=== PATIENT | male | born 1945 | race Caucasian/White ===

== ENCOUNTER 2022-12-10 10:19 | Inpatient (IN) | payer MEDICARE, OTHER ==
[~2022-12-10] VITALS: Ht 188 cm; Wt 89.8 kg
[2022-12-10] VITALS (8 sets, daily range): BP systolic 95–127; BP diastolic 57–90; PULSE 81–121; RESP 14–34; O2SAT 94–98
[2022-12-10] MEDS ORDERED: cefTRIAXone 1GM/50ML D5W 50 ML IV ONE (10:45)
[2022-12-10] MEDS ORDERED: SODIUM CHLORIDE 0.9% 2,600 ML IV ONE (10:45)
[2022-12-10] MEDS ORDERED: AZITHROMYCIN 500MG/ 250ML 250 ML IV ONE (10:45)
[2022-12-10] MEDS ORDERED: DexAMETHasone SOD PHOS 10MG/1ML VIAL INJ IV ONE (10:45)
[2022-12-10 11:14] LABS: Basophils # (auto) 0 10 ^3/uL (0-0.2); Eosinophils # (auto) 0.1 10 ^3/uL (0-0.8); Lymphocytes # (auto) 0.9 10 ^3/uL (0.4-5.4); Monocytes # (auto) 0.6 10 ^3/uL (0-1.3); Neutrophils # (auto) 4.8 10 ^3/uL (1.6-8.6); White Blood Cell 6.4 10^3/uL (4.4-10.8)
[2022-12-10 11:15] LABS: Basophils % (auto) 0.3 % (0.0-2.0); Mean Corpuscular Hemoglobin 33.6 pg (28.0-32.0); Mean Corpuscular Hgb Conc. 33.3 g/dL (32.0-36.0); Mean Corpuscular Volume 100.8 fL (80.0-100.0); Monocytes % (auto) 9.8 % (0.0-12.0); Neutrophils % (auto) 74.9 % (37.0-80.0); Nucleated Red Blood Cells % 0.3 %; Red Blood Cells 3.87 10^6/uL (4.5-5.90); Red Cell Distribution Width 13.4 % (11.8-14.3)
[2022-12-10 11:21] LABS: Albumin 3.7 g/dL (3.2-4.8); Alkaline Phosphatase 132 U/L (46-116); Anion Gap 6.5 (5-15); Aspartate Aminotransferase 13 U/L (13-40); BUN/Creatinine Ratio 19.2 (10.0-20.0); Bilirubin, Total 0.4 mg/dL (0.2-1.0); Blood Urea Nitrogen 24 mg/dL (9-23); Calcium 8.9 mg/dL (8.5-10.1); Carbon Dioxide 27.5 mmol/L (20-30); Chloride 104 mmol/L (98-107); Glucose 111 mg/dL (74-106); Magnesium 1.4 mg/dL (1.6-2.6); Potassium 4.1 mmol/L (3.5-5.1); Sodium 138 mmol/L (136-145); Total Protein 6.4 g/dL (5.7-8.2)
[2022-12-10] MEDS ORDERED: ACETAMINOPHEN 325 MG TAB PO ONE (11:30)
[2022-12-10] MEDS ORDERED: ENOXAPARIN SOD 100 MG/1 ML SYRINGE SC ONE (12:00)
[2022-12-10 12:08] LABS: Alanine Aminotransferase < 9 U/L (7-40)
[2022-12-10 12:18] LABS: Rapid Influenza A Negative (Negative); Rapid Influenza B Negative (Negative)
[2022-12-10 12:22] LABS: COVID19 ANTIGEN SOFIA FIA POSITIVE (NEGATIVE)
[2022-12-10] MEDS ORDERED: REMDESIVIR PER PHARMACY 0 ML IV SCH (13:00)
[2022-12-10] MEDS ORDERED: REMDESIVIR 200 MG in NS 210ml LOADING DOSE ADULT IV ONE (13:30)
[2022-12-10] MEDS ORDERED: IOHEXOL 350 MG/ML 100ML IJ ONE (13:32)
[2022-12-10] MEDS ORDERED: ONDANSETRON HCL 4 MG/2 ML VIAL IV ONE (14:45)
[2022-12-10] MEDS ORDERED: MORPHINE SULFATE 4 MG/ML SYR/VIAL IV ONE (14:45)
[2022-12-10] MEDS ORDERED: FURO1TAB33 PO (15:22)
[2022-12-10] MEDS ORDERED: ALPR1TAB7 PO (15:22)
[2022-12-10] MEDS ORDERED: DULO1CAP6 PO (15:22)
[2022-12-10] MEDS ORDERED: PANT40TA2 PO (15:22)
[2022-12-10] MEDS ORDERED: CARB-118 PO (15:22)
[2022-12-10] MEDS ORDERED: CARV12.544 PO (15:22)
[2022-12-10] MEDS ORDERED: ALBUTEROL SULF 2.5 MG/0.5ML(0.5%) NEB SOLN NEB PRN (16:15)
[2022-12-10] MEDS ORDERED: ACETAMINOPHEN 325 MG TAB PO PRN (16:15)
[2022-12-10] MEDS ORDERED: IPRATROPIUM BROM 0.5 MG/2.5ML INH SOL NEB PRN (16:15)
[2022-12-10] MEDS ORDERED: NITROGLYCERIN 0.4 MG SL TAB SL PRN (16:15)
[2022-12-10] MEDS ORDERED: HYDROcodone-ACET 5/325MG TAB PO PRN (16:15)
[2022-12-10] MEDS ORDERED: MORPHINE SULFATE INJ 2 MG/ml SYRG IV PRN (16:15)
[2022-12-10] MEDS: guaiFENesin-DM 100/10mg/5ml SYR PO PRN ×2 (16:54→21:51)
[2022-12-10] MEDS ORDERED: HEPARIN SODIUM (PORCINE) 5000 UNITS/ML 1ML VIAL IV ONE (17:30)
[2022-12-10] MEDS ORDERED: HEPARIN DRIP/D5W 100UNITS/ML 250 ML IV SCH ×2 (17:30→23:00)
[2022-12-10 19:06] LABS: INR 1.04 (0.9-1.15); Partial Thromboplastin Time 50.5 SEC (24.5-34.5); Prothrombin Time 10.9 sec (9.3-11.8)
[2022-12-10 21:30] LABS: Magnesium 1.4 mg/dL (1.6-2.6)
[2022-12-10 21:40] LABS: CRP High Sensitivity 13.6 mg/dL (<1.0)
[2022-12-10 21:49] LABS: Thyroid Stimulating Hormone 0.27 uIU/mL (0.55-4.78)
[2022-12-10] MEDS: DOXYCYCLINE 100 MG TAB/CAP PO SCH (21:49)
[2022-12-10] MEDS: SODIUM CHLOR 0.9% PF (SALINE LOCK) 10ML VIAL/SYR IV SCH (21:49)
[2022-12-10 21:52] LABS: Urine Bacteria NONE SEEN /hpf (None Seen); Urine Blood Negative /uL (Negative); Urine Clarity Clear (Clear); Urine Color Yellow (Yellow); Urine Protein, UAD 1+ (Negative); Urine Urobilinogen Normal (Negative); Urine WBC <1 /hpf (0 - 3); Urine pH 6.5 (5.0-8.0)
[2022-12-10 21:57] LABS: Urine Specific Gravity > 1.050 (1.001-1.035)
[2022-12-10] MEDS: ALPRAZolam 0.5 MG TAB PO SCH (22:12)
[2022-12-10] MEDS: CARVEDILOL 12.5 MG TAB PO SCH (22:12)
[2022-12-10] MEDS: CARBIDOPA W LEVODOPA 25/100mg TABLET PO SCH (22:12)
[2022-12-11] VITALS (22 sets, daily range): BP systolic 95–134; BP diastolic 61–87; PULSE 65–95; RESP 11–25; TEMP 97.7–98.8; O2SAT 89–100
[2022-12-11 04:26] LABS: INR 1.07 (0.9-1.15); Prothrombin Time 11.2 sec (9.3-11.8)
[2022-12-11 04:33] LABS: Partial Thromboplastin Time > 139.0 SEC (24.5-34.5)
[2022-12-11] MEDS ORDERED: HEPARIN DRIP/D5W 100UNITS/ML 250 ML IV SCH ×3 (05:30→23:30)
[2022-12-11 05:33] LABS: Basophils # (auto) 0 10 ^3/uL (0-0.2); Eosinophils # (auto) 0 10 ^3/uL (0-0.8); Hematocrit 31.7 % (41.0-53.0); Hemoglobin 10.8 g/dL (13.5-17.5); Lymphocytes # (auto) 0.5 10 ^3/uL (0.4-5.4); Monocytes # (auto) 0.2 10 ^3/uL (0-1.3); Neutrophils # (auto) 4.7 10 ^3/uL (1.6-8.6); White Blood Cell 5.4 10^3/uL (4.4-10.8)
[2022-12-11 05:36] LABS: Lymphocytes % (auto) 9.4 % (10.0-50.0); Mean Corpuscular Hemoglobin 34.4 pg (28.0-32.0); Mean Corpuscular Volume 101.1 fL (80.0-100.0); Monocytes % (auto) 3.8 % (0.0-12.0); Neutrophils % (auto) 86.8 % (37.0-80.0); Red Blood Cells 3.14 10^6/uL (4.5-5.90); Red Cell Distribution Width 13.1 % (11.8-14.3)
[2022-12-11 05:39] LABS: Alkaline Phosphatase 100 U/L (46-116); Aspartate Aminotransferase 9 U/L (13-40); Calcium 7.9 mg/dL (8.5-10.1); Carbon Dioxide 26.5 mmol/L (20-30); Chloride 107 mmol/L (98-107)
[2022-12-11 05:40] LABS: Anion Gap 5.5 (5-15); Bilirubin, Total 0.3 mg/dL (0.2-1.0); Blood Urea Nitrogen 21 mg/dL (9-23); Glucose 129 mg/dL (74-106); Sodium 139 mmol/L (136-145); Total Protein 5.2 g/dL (5.7-8.2)
[2022-12-11 05:50] LABS: Alanine Aminotransferase < 9 U/L (7-40)
[2022-12-11] MEDS: CARBIDOPA W LEVODOPA 25/100mg TABLET PO SCH ×3 (06:00→22:42)
[2022-12-11] MEDS: SODIUM CHLOR 0.9% PF (SALINE LOCK) 10ML VIAL/SYR IV SCH ×3 (06:05→22:41)
[2022-12-11] MEDS: DULoxetine HCL 30 MG CAP PO SCH (07:35)
[2022-12-11] MEDS: ALPRAZolam 0.5 MG TAB PO SCH ×2 (07:35→22:42)
[2022-12-11] MEDS: DOXYCYCLINE 100 MG TAB/CAP PO SCH ×2 (07:35→22:41)
[2022-12-11] MEDS: ZINC SULFATE 220mg CAP or TAB PO SCH (07:35)
[2022-12-11] MEDS: CHOLECALCIFEROL (VITD3) 2,000 UNIT CAP/TAB PO SCH (07:36)
[2022-12-11] MEDS: FUROSEMIDE 20 MG TAB PO SCH (07:36)
[2022-12-11] MEDS: ASCORBIC ACID 1,000 MG TAB PO SCH (07:36)
[2022-12-11] MEDS: AZITHROMYCIN 500MG/ 250ML 250 ML IV SCH (07:37)
[2022-12-11] MEDS: DexAMETHasone SOD PHOS 10MG/1ML VIAL INJ IV SCH (07:37)
[2022-12-11] MEDS: CARVEDILOL 12.5 MG TAB PO SCH ×2 (07:37→22:44)
[2022-12-11] MEDS: PANTOPRAZOLE 40 MG TAB PO SCH (07:37)
[2022-12-11] MEDS: guaiFENesin-DM 100/10mg/5ml SYR PO PRN (07:40)
[2022-12-11 08:25] LABS: Cholesterol 138 mg/dL (< 200)
[2022-12-11 08:26] LABS: Triglycerides 41 mg/dL (< 150)
[2022-12-11 08:27] LABS: LDL Cholesterol 52 mg/dL (< 100)
[2022-12-11 08:28] LABS: HDL Cholesterol 76 mg/dL (40-59)
[2022-12-11 12:20] LABS: INR 1.08 (0.9-1.15); Prothrombin Time 11.3 sec (9.3-11.8)
[2022-12-11 13:20] LABS: Partial Thromboplastin Time > 139.0 SEC (24.5-34.5)
[2022-12-11] MEDS ORDERED: MORPHINE SULFATE INJ 2 MG/ml SYRG IV PRN (14:00)
[2022-12-11] MEDS: REMDESIVIR 100mg 100 MG in SODIUM CHL 0.9% 230 ML IV SCH (15:00)
[2022-12-11] MEDS: HYDROcodone-ACET 5/325MG TAB PO PRN (17:45)
[2022-12-11 21:56] LABS: INR 1.05 (0.9-1.15)
[2022-12-11 22:26] LABS: Partial Thromboplastin Time 109.6 SEC (24.5-34.5)
[2022-12-11] MEDS: APIXABAN 5 MG TAB PO SCH (22:44)
[2022-12-12] VITALS (14 sets, daily range): BP systolic 102–125; BP diastolic 55–81; PULSE 65–97; RESP 15–24; TEMP 97.6–98.7; O2SAT 93–99
[2022-12-12] MEDS: HYDROcodone-ACET 5/325MG TAB PO PRN ×3 (01:46→22:02)
[2022-12-12] MEDS: guaiFENesin-DM 100/10mg/5ml SYR PO PRN (03:17)
[2022-12-12] MEDS: SODIUM CHLOR 0.9% PF (SALINE LOCK) 10ML VIAL/SYR IV SCH ×3 (06:00→22:10)
[2022-12-12] MEDS: CARBIDOPA W LEVODOPA 25/100mg TABLET PO SCH ×3 (06:21→22:02)
[2022-12-12 08:23] LABS: INR 1.02 (0.9-1.15); Partial Thromboplastin Time 39.1 SEC (24.5-34.5); Prothrombin Time 10.7 sec (9.3-11.8)
[2022-12-12 08:30] LABS: Alkaline Phosphatase 94 U/L (46-116); Anion Gap 5.2 (5-15); Aspartate Aminotransferase 8 U/L (13-40); BUN/Creatinine Ratio 21.8 (10.0-20.0); Bilirubin, Total 0.3 mg/dL (0.2-1.0); Blood Urea Nitrogen 27 mg/dL (9-23); Calcium 7.9 mg/dL (8.5-10.1); Carbon Dioxide 27.8 mmol/L (20-30); Chloride 106 mmol/L (98-107); Glucose 112 mg/dL (74-106); Potassium 4.3 mmol/L (3.5-5.1); Sodium 139 mmol/L (136-145); Total Protein 5.3 g/dL (5.7-8.2)
[2022-12-12 08:31] LABS: Alanine Aminotransferase < 9 U/L (7-40)
[2022-12-12] MEDS: AZITHROMYCIN 500MG/ 250ML 250 ML IV SCH (09:01)
[2022-12-12] MEDS: CARVEDILOL 12.5 MG TAB PO SCH ×2 (09:15→22:01)
[2022-12-12] MEDS: APIXABAN 5 MG TAB PO SCH ×2 (09:15→22:01)
[2022-12-12] MEDS: ZINC SULFATE 220mg CAP or TAB PO SCH (09:21)
[2022-12-12] MEDS: PANTOPRAZOLE 40 MG TAB PO SCH (09:21)
[2022-12-12] MEDS: CHOLECALCIFEROL (VITD3) 2,000 UNIT CAP/TAB PO SCH (09:21)
[2022-12-12] MEDS: ASCORBIC ACID 1,000 MG TAB PO SCH (09:21)
[2022-12-12] MEDS: DexAMETHasone SOD PHOS 10MG/1ML VIAL INJ IV SCH (09:23)
[2022-12-12] MEDS: FUROSEMIDE 20 MG TAB PO SCH (09:23)
[2022-12-12] MEDS: DOXYCYCLINE 100 MG TAB/CAP PO SCH ×2 (09:23→22:02)
[2022-12-12] MEDS: DULoxetine HCL 30 MG CAP PO SCH (10:00)
[2022-12-12] MEDS: ALPRAZolam 0.5 MG TAB PO SCH ×2 (10:00→22:02)
[2022-12-12 14:06] LABS: Base Excess -0.6 mmol/L (-2.0-2.0)
[2022-12-12] MEDS ORDERED: CALCIUM CARB 500 MG CHEW TAB PO ONE (14:30)
[2022-12-12] MEDS: REMDESIVIR 100mg 100 MG in SODIUM CHL 0.9% 230 ML IV SCH (16:13)
[2022-12-12] MEDS: CALCIUM CARB 500 MG CHEW TAB PO SCH (17:33)
[2022-12-13] VITALS (11 sets, daily range): BP systolic 114–142; BP diastolic 66–85; PULSE 64–84; RESP 17–24; TEMP 97.5–98; O2SAT 94–98
[2022-12-13] MEDS: CARBIDOPA W LEVODOPA 25/100mg TABLET PO SCH ×3 (05:41→22:52)
[2022-12-13] MEDS: SODIUM CHLOR 0.9% PF (SALINE LOCK) 10ML VIAL/SYR IV SCH ×3 (05:43→22:59)
[2022-12-13 06:37] LABS: Alkaline Phosphatase 98 U/L (46-116); Anion Gap 5.2 (5-15); Aspartate Aminotransferase < 8 U/L (13-40); BUN/Creatinine Ratio 22.7 (10.0-20.0); Bilirubin, Total 0.3 mg/dL (0.2-1.0); Blood Urea Nitrogen 27 mg/dL (9-23); Carbon Dioxide 28.8 mmol/L (20-30); Chloride 106 mmol/L (98-107); Glucose 103 mg/dL (74-106); Potassium 4.2 mmol/L (3.5-5.1); Sodium 140 mmol/L (136-145); Total Protein 5.1 g/dL (5.7-8.2)
[2022-12-13 07:08] LABS: Alanine Aminotransferase < 9 U/L (7-40)
[2022-12-13] MEDS ORDERED: APIXABAN 5 MG TAB PO SCH (10:00)
[2022-12-13] MEDS: AZITHROMYCIN 500MG/ 250ML 250 ML IV SCH (11:38)
[2022-12-13] MEDS: DexAMETHasone SOD PHOS 10MG/1ML VIAL INJ IV SCH (11:39)
[2022-12-13] MEDS: CALCIUM CARB 500 MG CHEW TAB PO SCH ×3 (11:39→18:00)
[2022-12-13] MEDS: CHOLECALCIFEROL (VITD3) 2,000 UNIT CAP/TAB PO SCH (11:40)
[2022-12-13] MEDS: CARVEDILOL 12.5 MG TAB PO SCH ×2 (11:41→22:53)
[2022-12-13] MEDS: FUROSEMIDE 20 MG TAB PO SCH (11:41)
[2022-12-13] MEDS: APIXABAN 5 MG TAB PO SCH ×2 (11:41→22:53)
[2022-12-13] MEDS: ALPRAZolam 0.5 MG TAB PO SCH ×2 (11:42→22:52)
[2022-12-13] MEDS: ZINC SULFATE 220mg CAP or TAB PO SCH (11:42)
[2022-12-13] MEDS: DULoxetine HCL 30 MG CAP PO SCH (11:42)
[2022-12-13] MEDS: PANTOPRAZOLE 40 MG TAB PO SCH (11:42)
[2022-12-13] MEDS: ASCORBIC ACID 1,000 MG TAB PO SCH (11:42)
[2022-12-13] MEDS: DOXYCYCLINE 100 MG TAB/CAP PO SCH ×2 (11:42→22:52)
[2022-12-13] MEDS: REMDESIVIR 100mg 100 MG in SODIUM CHL 0.9% 230 ML IV SCH (15:17)
[2022-12-13] MEDS: HYDROcodone-ACET 5/325MG TAB PO PRN (22:57)
[2022-12-14] VITALS (9 sets, daily range): BP systolic 117–141; BP diastolic 74–83; PULSE 62–76; RESP 14–22; TEMP 97.3–98.7; O2SAT 95–100
[2022-12-14 05:35] LABS: Basophils # (auto) 0 10 ^3/uL (0-0.2); Basophils % (auto) 0.1 % (0.0-2.0); Eosinophils # (auto) 0 10 ^3/uL (0-0.8); Hematocrit 32.5 % (41.0-53.0); Lymphocytes # (auto) 0.5 10 ^3/uL (0.4-5.4); Lymphocytes % (auto) 9.1 % (10.0-50.0); Mean Corpuscular Hgb Conc. 33.9 g/dL (32.0-36.0); Mean Corpuscular Volume 100.1 fL (80.0-100.0); Monocytes # (auto) 0.3 10 ^3/uL (0-1.3); Monocytes % (auto) 6.1 % (0.0-12.0); Neutrophils # (auto) 4.3 10 ^3/uL (1.6-8.6); Neutrophils % (auto) 84.7 % (37.0-80.0); Nucleated Red Blood Cells % 0.2 %; Red Blood Cells 3.25 10^6/uL (4.5-5.90); Red Cell Distribution Width 13.2 % (11.8-14.3); White Blood Cell 5.1 10^3/uL (4.4-10.8)
[2022-12-14] MEDS: CARBIDOPA W LEVODOPA 25/100mg TABLET PO SCH ×2 (05:39→14:00)
[2022-12-14] MEDS: SODIUM CHLOR 0.9% PF (SALINE LOCK) 10ML VIAL/SYR IV SCH ×2 (05:39→14:00)
[2022-12-14 05:58] LABS: Alkaline Phosphatase 92 U/L (46-116); BUN/Creatinine Ratio 23.3 (10.0-20.0); Blood Urea Nitrogen 24 mg/dL (9-23); Calcium 8.1 mg/dL (8.7-10.4); Chloride 107 mmol/L (98-107); Glucose 123 mg/dL (74-106); Potassium 4.1 mmol/L (3.5-5.1); Sodium 141 mmol/L (136-145)
[2022-12-14 05:59] LABS: Aspartate Aminotransferase < 8 U/L (13-40); Bilirubin, Total 0.3 mg/dL (0.2-1.0)
[2022-12-14 06:20] LABS: Alanine Aminotransferase < 9 U/L (7-40)
[2022-12-14] MEDS: ZINC SULFATE 220mg CAP or TAB PO SCH (10:45)
[2022-12-14] MEDS: DULoxetine HCL 30 MG CAP PO SCH (10:45)
[2022-12-14] MEDS: APIXABAN 5 MG TAB PO SCH (10:45)
[2022-12-14] MEDS: ALPRAZolam 0.5 MG TAB PO SCH (10:45)
[2022-12-14] MEDS: DOXYCYCLINE 100 MG TAB/CAP PO SCH (10:46)
[2022-12-14] MEDS: FUROSEMIDE 20 MG TAB PO SCH (10:46)
[2022-12-14] MEDS: CALCIUM CARB 500 MG CHEW TAB PO SCH ×3 (10:46→18:14)
[2022-12-14] MEDS: CARVEDILOL 12.5 MG TAB PO SCH (10:47)
[2022-12-14] MEDS: CHOLECALCIFEROL (VITD3) 2,000 UNIT CAP/TAB PO SCH (10:47)
[2022-12-14] MEDS: ASCORBIC ACID 1,000 MG TAB PO SCH (10:48)
[2022-12-14] MEDS: AZITHROMYCIN 500MG/ 250ML 250 ML IV SCH (10:48)
[2022-12-14] MEDS: PANTOPRAZOLE 40 MG TAB PO SCH (10:48)
[2022-12-14] MEDS: DexAMETHasone SOD PHOS 10MG/1ML VIAL INJ IV SCH (10:48)
[2022-12-14] MEDS: guaiFENesin-DM 100/10mg/5ml SYR PO PRN (11:31)
[2022-12-14] MEDS ORDERED: DOX100T PO (11:40)
[2022-12-14] MEDS ORDERED: APIX5TAB PO (11:40)
[2022-12-14] MEDS: REMDESIVIR 100mg 100 MG in SODIUM CHL 0.9% 230 ML IV SCH (17:05)
[2022-12-19] MEDS ORDERED: APIXABAN 5 MG TAB PO SCH (10:00)
[2022-12-20] MEDS ORDERED: APIXABAN 2.5 MG TAB PO SCH (10:00)
== END 2022-12-14 19:35 | disposition left against medical advice (07) | DRG 177 ==
LOC: ER 10:19 → EDBD 10:19 → TELE 16:23 → DOU IN ICU 21:16 → TELE-EAST 12-12 02:56
PROVIDERS: ADMIT Nurse Practitioner Family; ATTEND Nurse Practitioner Acute Care
PROC: XW033E5 Introduction of Remdesivir Anti-infective into Peripheral Vein, Percutaneous Approach, New Technology Group 5 (ICD-10-PCS; principal; 2022-12-10)
DX: U07.1 COVID-19 (principal); I26.92 Saddle embolus of pulmonary artery without acute cor pulmonale; I50.23 Acute on chronic systolic (congestive) heart failure; J96.01 Acute respiratory failure with hypoxia; I82.4Z1 Acute embolism and thrombosis of unspecified deep veins of right distal lower extremity; D69.6 Thrombocytopenia, unspecified; E78.5 Hyperlipidemia, unspecified; J44.9 Chronic obstructive pulmonary disease, unspecified; G20 Parkinson's disease; Z87.891 Personal history of nicotine dependence; Z79.01 Long term (current) use of anticoagulants; Z86.711 Personal history of pulmonary embolism; Z90.49 Acquired absence of other specified parts of digestive tract
CPT/HCPCS: 36415; 36600; 71045; 71275; 80053; 80061; 81001; 82306; 82728; 82805; 83036; 83605; 83615; 83735; 83880; 84443; 84484; 85025; 85379; 85610; 85730; 86141; 87040; 87081; 87426; 87804; 93005; 93306; 93970; 94640; 96365; 96375; 99291; G0378; J0696; J1100; J2405

== ENCOUNTER 2023-04-27 13:25 | Emergency (ER) | payer MEDICARE, OTHER ==
[~2023-04-27] VITALS: Ht 177.8 cm; Wt 88.6 kg
[~2023-04-27 13:25] MED LIST: ALPR1TAB7 PO; APIX5TAB PO; CARB-118 PO; CARV12.544 PO; DOX100T PO; DULO1CAP6 PO; FURO1TAB33 PO; PANT40TA2 PO
[2023-04-27 15:40] VITALS: BP 114/63; PULSE 97; RESP 14; TEMP 97.6; O2SAT 97
[2023-04-27] MEDS: FUROSEMIDE 100 MG/10ML VIAL IV ONE (15:42)
[2023-04-27 15:49] LABS: Basophils # (auto) 0 10 ^3/uL (0-0.2); Basophils % (auto) 0.4 % (0.0-2.0); Eosinophils # (auto) 0 10 ^3/uL (0-0.8); Eosinophils % (auto) 0.9 % (0.0-7.0); Hematocrit 40.2 % (41.0-53.0); Hemoglobin 12.9 g/dL (13.5-17.5); Lymphocytes # (auto) 0.7 10 ^3/uL (0.4-5.4); Lymphocytes % (auto) 22.8 % (10.0-50.0); Mean Corpuscular Hemoglobin 34.7 pg (28.0-32.0); Mean Corpuscular Hgb Conc. 32.1 g/dL (32.0-36.0); Mean Corpuscular Volume 108.2 fL (80.0-100.0); Monocytes # (auto) 0.3 10 ^3/uL (0-1.3); Monocytes % (auto) 9.2 % (0.0-12.0); Neutrophils # (auto) 2.2 10 ^3/uL (1.6-8.6); Neutrophils % (auto) 66.7 % (37.0-80.0); Nucleated Red Blood Cells % 0.1 %; Red Blood Cells 3.72 10^6/uL (4.5-5.90); Red Cell Distribution Width 16.8 % (11.8-14.3); White Blood Cell 3.3 10^3/uL (4.4-10.8)
[2023-04-27 16:04] LABS: Alanine Aminotransferase 14 U/L (7-40); Albumin 3.4 g/dL (3.2-4.8); Alkaline Phosphatase 149 U/L (46-116); Anion Gap 6 (5-15); Aspartate Aminotransferase 65 U/L (13-40); Blood Urea Nitrogen 17 mg/dL (9-23); Calcium 8.5 mg/dL (8.5-10.1); Carbon Dioxide 32 mmol/L (20-30); Chloride 104 mmol/L (98-107); Glucose 107 mg/dL (74-106); Potassium 3.5 mmol/L (3.5-5.1); Sodium 142 mmol/L (136-145)
[2023-04-27 16:05] LABS: Total Protein 5.5 g/dL (5.7-8.2)
[2023-04-27 16:13] LABS: CRP High Sensitivity 1.11 mg/dL (<1.0)
[2023-04-27 16:32] LABS: Magnesium 1.5 mg/dL (1.6-2.6)
[2023-04-27 16:33] LABS: Erythrocyte Sedimentation Rate 11 mm/hr (0-20)
[2023-04-27 17:03] LABS: Urine Epithelial Cast None Seen /hpf (<5)
[2023-04-27] MEDS ORDERED: MAGNESIUM SULFATE 1GM/100ML 100 ML IV ONE (17:15)
[2023-04-27] MEDS ORDERED: CLINDAMYCIN 900MG IV 50 ML IV ONE (17:15)
[2023-04-27 17:32] LABS: Urine Bacteria NONE SEEN /hpf (None Seen); Urine Blood Negative /uL (Negative); Urine Clarity Clear (Clear); Urine Color Colorless (Yellow); Urine Hyaline Cast FEW /lpf (0 - 2); Urine Protein, UAD Negative (Negative); Urine Specific Gravity 1.009 (1.001-1.035); Urine Urobilinogen Normal (Negative); Urine WBC 2 /hpf (0 - 3); Urine pH 5.5 (5.0-8.0)
[2023-04-27] MEDS ORDERED: ACETAMINOPHEN 325 MG TAB PO PRN (20:30)
[2023-04-27] MEDS ORDERED: ONDANSETRON HCL 4 MG/2 ML VIAL IV PRN (20:30)
[2023-04-27] MEDS ORDERED: CARVEDILOL 3.125 MG TAB PO SCH (22:00)
[2023-04-27] MEDS ORDERED: CARBIDOPA W LEVODOPA 25/100mg TABLET PO SCH (22:00)
[2023-04-27] MEDS ORDERED: APIXABAN 2.5 MG TAB PO SCH (22:00)
[2023-04-28] MEDS ORDERED: CLINDAMYCIN 600MG IV 50 ML IV SCH (06:00)
[2023-04-28] MEDS ORDERED: DULoxetine HCL 30 MG CAP PO SCH (10:00)
[2023-04-28] MEDS ORDERED: FUROSEMIDE 40 MG TAB PO SCH (10:00)
[2023-04-28] MEDS ORDERED: TAMSULOSIN HYDROCHLORIDE 0.4 MG CAP PO SCH (18:00)
== END 2023-04-27 20:32 | disposition left against medical advice (07) ==
LOC: ER 13:25 → OVERFLOW 20:32 → EAST 20:32 → UNDOADMIN 20:32 → OVERFLOW 23:41 → EAST 23:41 → UNDODISIN 23:59 → OVERFLOW 04-28 00:15 → EAST 04-28 00:15
DX: L03.115 Cellulitis of right lower limb (principal); L03.116 Cellulitis of left lower limb; R91.1 Solitary pulmonary nodule; J44.9 Chronic obstructive pulmonary disease, unspecified; I50.9 Heart failure, unspecified; E83.42 Hypomagnesemia; R79.1 Abnormal coagulation profile; Z87.891 Personal history of nicotine dependence; Z86.711 Personal history of pulmonary embolism; Z79.2 Long term (current) use of antibiotics; Z79.899 Other long term (current) drug therapy; Z88.2 Allergy status to sulfonamides; Z91.018 Allergy to other foods
CPT/HCPCS: 36415; 71045; 71275; 80053; 81001; 83605; 83735; 83880; 84484; 85025; 85379; 85652; 86141; 87040; 93970; 96374; 99291; J1940; Q9967; G0378

== ENCOUNTER 2023-11-10 13:41 | Inpatient (IN) | payer MEDICARE ==
[~2023-11-10] VITALS: Ht 182.9 cm; Wt 82.1 kg
[~2023-11-10 13:41] MED LIST changes: +CARV6.2551 PO; +DULO30CA PO; +FURO40TA4 PO
[2023-11-10 14:34] VITALS: PULSE 120; RESP 27; O2SAT 97
[2023-11-10 14:34] LABS: Basophils # (auto) 0.1 10 ^3/uL (0-0.2); Basophils % (auto) 0.7 % (0.0-2.0); Eosinophils # (auto) 0 10 ^3/uL (0-0.8); Eosinophils % (auto) 0.5 % (0.0-7.0); Hematocrit 30.6 % (41.0-53.0); Lymphocytes # (auto) 0.6 10 ^3/uL (0.4-5.4); Lymphocytes % (auto) 7.2 % (10.0-50.0); Mean Corpuscular Hemoglobin 30.8 pg (28.0-32.0); Mean Corpuscular Hgb Conc. 32.6 g/dL (32.0-36.0); Mean Corpuscular Volume 94.4 fL (80.0-100.0); Monocytes # (auto) 0.5 10 ^3/uL (0-1.3); Monocytes % (auto) 6.8 % (0.0-12.0); Neutrophils # (auto) 6.7 10 ^3/uL (1.6-8.6); Neutrophils % (auto) 84.8 % (37.0-80.0); Nucleated Red Blood Cells % 0.1 %; Red Blood Cells 3.24 10^6/uL (4.5-5.90); Red Cell Distribution Width 15.6 % (11.8-14.3); White Blood Cell 7.9 10^3/uL (4.4-10.8)
[2023-11-10] MEDS: SODIUM CHLORIDE 0.9% 1,000 ML IV ONE ×4 (14:40→21:53)
[2023-11-10 14:48] LABS: INR 1.07 (0.9-1.15); Partial Thromboplastin Time 28.9 SEC (24.5-34.5); Prothrombin Time 11.3 sec (9.3-11.8)
[2023-11-10] MEDS: HYDROcodone-ACET 10/325MG TAB PO ONE ×2 (14:49→18:01)
[2023-11-10 14:59] LABS: Alkaline Phosphatase 136 U/L (46-116); Anion Gap 9 (5-15); Aspartate Aminotransferase 13 U/L (13-40); BUN/Creatinine Ratio 14.8 (10.0-20.0); Blood Urea Nitrogen 18 mg/dL (9-23); Calcium 8.8 mg/dL (8.7-10.4); Carbon Dioxide 30 mmol/L (20-30); Chloride 99 mmol/L (98-107); Glucose 109 mg/dL (74-106); Magnesium 1.4 mg/dL (1.6-2.6); Potassium 3.1 mmol/L (3.5-5.1); Sodium 138 mmol/L (136-145)
[2023-11-10 15:00] LABS: Bilirubin, Total 0.8 mg/dL (0.2-1.0); Total Protein 5.7 g/dL (5.7-8.2)
[2023-11-10 15:09] LABS: Alanine Aminotransferase < 9 U/L (7-40)
[2023-11-10] MEDS ORDERED: SODIUM CHLORIDE 0.9% 1,000 ML IV ONE (15:15)
[2023-11-10] MEDS: cefTRIAXone 1GM/50ML D5W 50 ML IV ONE (15:24)
[2023-11-10] MEDS: CLINDAMYCIN 600MG IV 50 ML IV ONE (15:44)
[2023-11-10 16:25] LABS: Lactic Acid w/Reflex 4.5 mmol/L (0.4-2.0)
[2023-11-10 18:20] LABS: Urine Bacteria FEW /hpf (None Seen); Urine Blood 2+ /uL (Negative); Urine Hyaline Cast MANY /lpf (0 - 2); Urine Mucus FEW (None Seen); Urine Protein, UAD 2+ (Negative); Urine Specific Gravity 1.017 (1.001-1.035); Urine Urobilinogen 2 mg/dL (Negative); Urine WBC 1677 /hpf (0 - 3); Urine WBC Clumps PRESENT /hpf (None Seen)
[2023-11-10 18:26] LABS: Urine Clarity TURBID (Clear); Urine Color Amber (Yellow)
[2023-11-10 19:30] VITALS: PULSE 100; RESP 14; O2SAT 100
[2023-11-10] MEDS ORDERED: ACETAMINOPHEN 325 MG TAB PO PRN (23:00)
[2023-11-10] MEDS ORDERED: ALBUTEROL SULF 2.5 MG/0.5ML(0.5%) NEB SOLN NEB PRN (23:00)
[2023-11-10] MEDS: SODIUM CHLORIDE 0.9% 1,000 ML IV SCH (23:29)
[2023-11-10] MEDS: POTASSIUM CHL 20 Meq TABLET PO ONE (23:29)
[2023-11-10] MEDS: MAGNESIUM SULFATE 1GM/100ML 100 ML IV ONE (23:29)
[2023-11-10] MEDS: ALBUMIN 25% 100 ML IV ONE (23:30)
[2023-11-10] MEDS ORDERED: NITROGLYCERIN 0.4 MG SL TAB SL PRN (23:45)
[2023-11-10] MEDS ORDERED: MORPHINE SULFATE INJ 2 MG/ml SYRG IV PRN (23:45)
[2023-11-11] VITALS (11 sets, daily range): BP systolic 93–127; BP diastolic 51–71; PULSE 68–104; RESP 17–20; TEMP 97.7–98.6; O2SAT 92–100
[2023-11-11 05:33] LABS: Basophils # (auto) 0 10 ^3/uL (0-0.2); Eosinophils # (auto) 0.1 10 ^3/uL (0-0.8); Eosinophils % (auto) 2.8 % (0.0-7.0); Hemoglobin 8.5 g/dL (13.5-17.5); Lymphocytes # (auto) 1.6 10 ^3/uL (0.4-5.4); Lymphocytes % (auto) 31.6 % (10.0-50.0); Mean Corpuscular Hgb Conc. 32.6 g/dL (32.0-36.0); Monocytes # (auto) 0.5 10 ^3/uL (0-1.3); Monocytes % (auto) 10.2 % (0.0-12.0); Neutrophils # (auto) 2.8 10 ^3/uL (1.6-8.6); Neutrophils % (auto) 54.4 % (37.0-80.0); Nucleated Red Blood Cells % 0.2 %; Red Blood Cells 2.74 10^6/uL (4.5-5.90); Red Cell Distribution Width 15.3 % (11.8-14.3); White Blood Cell 5.1 10^3/uL (4.4-10.8)
[2023-11-11 05:58] LABS: Alkaline Phosphatase 106 U/L (46-116); Anion Gap 5 (5-15); Aspartate Aminotransferase 9 U/L (13-40); Carbon Dioxide 25 mmol/L (20-30); Chloride 108 mmol/L (98-107); Glucose 74 mg/dL (74-106); Potassium 3.4 mmol/L (3.5-5.1); Sodium 138 mmol/L (136-145)
[2023-11-11 05:59] LABS: BUN/Creatinine Ratio 12.5 (10.0-20.0); Blood Urea Nitrogen 12 mg/dL (9-23)
[2023-11-11 06:00] LABS: Albumin 2.6 g/dL (3.2-4.8); Bilirubin, Total 0.4 mg/dL (0.2-1.0)
[2023-11-11 06:15] LABS: Alanine Aminotransferase < 9 U/L (7-40)
[2023-11-11 07:10] LABS: Total Protein 5.1 g/dL (5.7-8.2)
[2023-11-11] MEDS: cefTRIAXone 1GM/50ML D5W 50 ML IV SCH (09:54)
[2023-11-11] MEDS: FAMOTIDINE (10MG/ML) 2ML VL IV SCH (09:57)
[2023-11-11] MEDS: APIXABAN 5 MG TAB PO SCH (09:57)
[2023-11-11 12:43] LABS: Hematocrit 26.3 % (41.0-53.0); Hemoglobin 8.5 g/dL (13.5-17.5)
[2023-11-11] MEDS: HYDROcodone-ACET 5/325MG TAB PO PRN (13:05)
[2023-11-11] MEDS: POTASSIUM EFFERVESENT TAB 25 MEQ PO ONE (13:19)
[2023-11-11 13:51] LABS: Hematocrit 26.9 % (41.0-53.0); Hemoglobin 8.7 g/dL (13.5-17.5)
[2023-11-11] MEDS: MAGNESIUM SULFATE 1GM/100ML 100 ML IV ONE (17:31)
[2023-11-11] MEDS: APIXABAN 2.5 MG TAB PO SCH (21:32)
[2023-11-12] VITALS (8 sets, daily range): BP systolic 120–145; BP diastolic 69–81; PULSE 52–102; RESP 15–17; TEMP 97.7–98.7; O2SAT 91–98
[2023-11-12 06:20] LABS: Basophils # (auto) 0.1 10 ^3/uL (0-0.2); Basophils % (auto) 1.1 % (0.0-2.0); Eosinophils # (auto) 0.1 10 ^3/uL (0-0.8); Hemoglobin 8.3 g/dL (13.5-17.5); Lymphocytes # (auto) 1.2 10 ^3/uL (0.4-5.4); Mean Corpuscular Hemoglobin 31.2 pg (28.0-32.0); Monocytes # (auto) 0.4 10 ^3/uL (0-1.3); Neutrophils # (auto) 2.9 10 ^3/uL (1.6-8.6); Red Blood Cells 2.66 10^6/uL (4.5-5.90); White Blood Cell 4.7 10^3/uL (4.4-10.8)
[2023-11-12 06:24] LABS: Eosinophils % (auto) 2.5 % (0.0-7.0); Lymphocytes % (auto) 25.8 % (10.0-50.0); Mean Corpuscular Hgb Conc. 33.1 g/dL (32.0-36.0); Mean Corpuscular Volume 94.2 fL (80.0-100.0); Monocytes % (auto) 8.1 % (0.0-12.0); Neutrophils % (auto) 62.5 % (37.0-80.0)
[2023-11-12 06:35] LABS: Anion Gap 5 (5-15); Calcium 8.3 mg/dL (8.7-10.4); Carbon Dioxide 29 mmol/L (20-30); Chloride 107 mmol/L (98-107); Potassium 4.1 mmol/L (3.5-5.1); Sodium 141 mmol/L (136-145)
[2023-11-12 06:41] LABS: Blood Urea Nitrogen 8 mg/dL (9-23); Glucose 78 mg/dL (74-106)
[2023-11-12 06:42] LABS: Magnesium 1.7 mg/dL (1.6-2.6)
[2023-11-12 07:17] LABS: BUN/Creatinine Ratio 10.5 (10.0-20.0)
[2023-11-12] MEDS: MAGNESIUM OXIDE 400 MG TAB PO SCH (09:49)
[2023-11-12] MEDS: MAGNESIUM SULFATE 1GM/100ML 100 ML IV ONE (13:41)
[2023-11-13] VITALS (11 sets, daily range): BP systolic 114–134; BP diastolic 68–83; PULSE 72–113; RESP 17–20; TEMP 97.9–99.6; O2SAT 91–99
[2023-11-13 06:25] LABS: Basophils # (auto) 0 10 ^3/uL (0-0.2); Basophils % (auto) 0.8 % (0.0-2.0); Eosinophils # (auto) 0.2 10 ^3/uL (0-0.8); Eosinophils % (auto) 3.1 % (0.0-7.0); Hematocrit 27.4 % (41.0-53.0); Lymphocytes # (auto) 1.3 10 ^3/uL (0.4-5.4); Lymphocytes % (auto) 26.6 % (10.0-50.0); Mean Corpuscular Hemoglobin 30.7 pg (28.0-32.0); Mean Corpuscular Volume 93.1 fL (80.0-100.0); Monocytes # (auto) 0.4 10 ^3/uL (0-1.3); Monocytes % (auto) 8.2 % (0.0-12.0); Neutrophils # (auto) 3.1 10 ^3/uL (1.6-8.6); Neutrophils % (auto) 61.3 % (37.0-80.0); Red Blood Cells 2.94 10^6/uL (4.5-5.90); Red Cell Distribution Width 15.4 % (11.8-14.3)
[2023-11-13 06:27] LABS: Albumin 2.6 g/dL (3.2-4.8); Alkaline Phosphatase 115 U/L (46-116); Anion Gap 6 (5-15); Aspartate Aminotransferase 10 U/L (13-40); BUN/Creatinine Ratio 9.8 (10.0-20.0); Blood Urea Nitrogen 6 mg/dL (9-23); Calcium 8.6 mg/dL (8.7-10.4); Carbon Dioxide 27 mmol/L (20-30); Chloride 104 mmol/L (98-107); Glucose 74 mg/dL (74-106); Magnesium 1.9 mg/dL (1.6-2.6); Sodium 137 mmol/L (136-145)
[2023-11-13 06:28] LABS: Bilirubin, Total 0.4 mg/dL (0.2-1.0); Total Protein 5.2 g/dL (5.7-8.2)
[2023-11-13 06:34] LABS: Alanine Aminotransferase < 9 U/L (7-40)
[2023-11-13] MEDS: DOCUSATE SOD 100 MG CAP PO PRN (08:52)
[2023-11-13] MEDS: ONDANSETRON HCL 4 MG/2 ML VIAL IV PRN (10:43)
[2023-11-13] MEDS: CARVEDILOL 3.125 MG TAB PO SCH (21:16)
[2023-11-14] VITALS (8 sets, daily range): BP systolic 90–136; BP diastolic 67–74; PULSE 80–105; RESP 16–19; TEMP 97.5–98.5; O2SAT 91–95
[2023-11-14 07:07] LABS: Basophils # (auto) 0.1 10 ^3/uL (0-0.2); Basophils % (auto) 1.3 % (0.0-2.0); Eosinophils # (auto) 0.1 10 ^3/uL (0-0.8); Eosinophils % (auto) 2.3 % (0.0-7.0); Hematocrit 27.5 % (41.0-53.0); Hemoglobin 9.1 g/dL (13.5-17.5); Lymphocytes # (auto) 1.4 10 ^3/uL (0.4-5.4); Lymphocytes % (auto) 27.3 % (10.0-50.0); Mean Corpuscular Hemoglobin 30.7 pg (28.0-32.0); Mean Corpuscular Hgb Conc. 33.2 g/dL (32.0-36.0); Mean Corpuscular Volume 92.6 fL (80.0-100.0); Monocytes # (auto) 0.4 10 ^3/uL (0-1.3); Neutrophils # (auto) 3.1 10 ^3/uL (1.6-8.6); Neutrophils % (auto) 61.1 % (37.0-80.0); Red Blood Cells 2.97 10^6/uL (4.5-5.90); Red Cell Distribution Width 15.1 % (11.8-14.3)
[2023-11-14 07:46] LABS: Albumin 2.7 g/dL (3.2-4.8); Alkaline Phosphatase 117 U/L (46-116); Anion Gap 6 (5-15); Aspartate Aminotransferase 9 U/L (13-40); BUN/Creatinine Ratio 12.5 (10.0-20.0); Blood Urea Nitrogen 8 mg/dL (9-23); Calcium 9.1 mg/dL (8.7-10.4); Carbon Dioxide 27 mmol/L (20-30); Chloride 105 mmol/L (98-107); Glucose 75 mg/dL (74-106); Magnesium 1.8 mg/dL (1.6-2.6); Potassium 4.2 mmol/L (3.5-5.1); Sodium 138 mmol/L (136-145)
[2023-11-14 07:47] LABS: Bilirubin, Total 0.4 mg/dL (0.2-1.0)
[2023-11-14 07:50] LABS: Alanine Aminotransferase < 9 U/L (7-40)
[2023-11-15] VITALS (8 sets, daily range): BP systolic 84–128; BP diastolic 51–68; PULSE 71–103; RESP 14–18; TEMP 97.4–98.6; O2SAT 90–95
[2023-11-15 05:19] LABS: Basophils # (auto) 0.1 10 ^3/uL (0-0.2); Monocytes # (auto) 0.4 10 ^3/uL (0-1.3)
[2023-11-15 05:21] LABS: Basophils % (auto) 1.1 % (0.0-2.0); Eosinophils # (auto) 0.2 10 ^3/uL (0-0.8); Eosinophils % (auto) 3.7 % (0.0-7.0); Hematocrit 25.5 % (41.0-53.0); Hemoglobin 8.6 g/dL (13.5-17.5); Lymphocytes # (auto) 1.4 10 ^3/uL (0.4-5.4); Lymphocytes % (auto) 30.2 % (10.0-50.0); Mean Corpuscular Hemoglobin 31.2 pg (28.0-32.0); Mean Corpuscular Hgb Conc. 33.7 g/dL (32.0-36.0); Mean Corpuscular Volume 92.6 fL (80.0-100.0); Monocytes % (auto) 8.8 % (0.0-12.0); Neutrophils # (auto) 2.7 10 ^3/uL (1.6-8.6); Neutrophils % (auto) 56.2 % (37.0-80.0); Red Blood Cells 2.76 10^6/uL (4.5-5.90); Red Cell Distribution Width 15.2 % (11.8-14.3); White Blood Cell 4.7 10^3/uL (4.4-10.8)
[2023-11-15 05:39] LABS: Albumin 2.7 g/dL (3.2-4.8); Alkaline Phosphatase 107 U/L (46-116); Anion Gap 3 (5-15); Aspartate Aminotransferase 9 U/L (13-40); BUN/Creatinine Ratio 11.1 (10.0-20.0); Bilirubin, Total 0.4 mg/dL (0.2-1.0); Blood Urea Nitrogen 8 mg/dL (9-23); Carbon Dioxide 32 mmol/L (20-30); Chloride 106 mmol/L (98-107); Glucose 88 mg/dL (74-106); Magnesium 1.9 mg/dL (1.6-2.6); Potassium 4.4 mmol/L (3.5-5.1); Sodium 141 mmol/L (136-145)
[2023-11-15 05:40] LABS: Total Protein 5.2 g/dL (5.7-8.2)
[2023-11-15 06:01] LABS: Alanine Aminotransferase < 9 U/L (7-40)
[2023-11-15] MEDS ORDERED: CIPR-173 PO (10:28)
[2023-11-16 05:00] VITALS: BP 133/76; PULSE 84; RESP 17; TEMP 97.9; O2SAT 94
[2023-11-16 08:00] VITALS: PULSE 102
[2023-11-16 09:00] VITALS: BP 136/82; PULSE 86; RESP 14; TEMP 97.9; O2SAT 93
[2023-11-16] MEDS: levoFLOXacin 500MG 100 ML IV SCH (10:01)
[2023-11-16 13:00] VITALS: BP 118/70; PULSE 91; RESP 16; TEMP 97.7; O2SAT 95
[2023-11-16 14:59] VITALS: BP 118/70; PULSE 91; RESP 18; TEMP 97.7; O2SAT 98
[2023-11-16 17:00] VITALS: BP 126/81; PULSE 82; RESP 14; TEMP 98; O2SAT 97
== END 2023-11-16 16:53 | DRG 871 ==
LOC: EDUNIT# 13:41 → ER 13:41 → EDBD 13:41 → TELE 23:43 → TELE-WESTW 11-11 02:10
PROVIDERS: ADMIT Nurse Practitioner Family; ATTEND Family Medicine
DX: A41.9 Sepsis, unspecified organism (principal); R65.21 Severe sepsis with septic shock; E87.21 Acute metabolic acidosis; I47.10 Supraventricular tachycardia, unspecified; I48.92 Unspecified atrial flutter; J44.1 Chronic obstructive pulmonary disease with (acute) exacerbation; N30.00 Acute cystitis without hematuria; E83.42 Hypomagnesemia; E87.6 Hypokalemia; E78.5 Hyperlipidemia, unspecified; I48.0 Paroxysmal atrial fibrillation; I49.1 Atrial premature depolarization; D64.9 Anemia, unspecified; G20.A1 Parkinson's disease without dyskinesia, without mention of fluctuations; Z79.01 Long term (current) use of anticoagulants; Z87.891 Personal history of nicotine dependence; Z86.16 Personal history of COVID-19; Z80.3 Family history of malignant neoplasm of breast; Z90.49 Acquired absence of other specified parts of digestive tract; Z86.718 Personal history of other venous thrombosis and embolism; Z86.711 Personal history of pulmonary embolism; Z91.81 History of falling; E88.09 Other disorders of plasma-protein metabolism, not elsewhere classified
CPT/HCPCS: 36415; 71045; 80048; 80053; 81001; 83605; 83735; 83880; 84443; 84484; 85014; 85018; 85025; 85610; 85730; 87040; 87086; 87088; 87186; 93005; 93306; 96365; 96366; 97110; 97116; 97163; 97530; 99291; G0378; J1956; J2405; J3490; P9047

== ENCOUNTER 2024-01-26 19:07 | Inpatient (IN) | payer OTHER, MEDICARE ==
[~2024-01-26] VITALS: Ht 175.3 cm; Wt 70.0 kg
[~2024-01-26 19:07] MED LIST changes: -CARV12.544 PO; +CIPR-173 PO; -DOX100T PO; -DULO1CAP6 PO; -FURO1TAB33 PO
[2024-01-26 19:52] LABS: Basophils # (auto) 0 10 ^3/uL (0-0.2); Basophils % (auto) 0.5 % (0.0-2.0); Eosinophils # (auto) 0.1 10 ^3/uL (0-0.8); Eosinophils % (auto) 1.8 % (0.0-7.0); Hematocrit 41.8 % (41.0-53.0); Hemoglobin 13.4 g/dL (13.5-17.5); Lymphocytes # (auto) 1.7 10 ^3/uL (0.4-5.4); Lymphocytes % (auto) 26.6 % (10.0-50.0); Mean Corpuscular Hemoglobin 29.8 pg (28.0-32.0); Mean Corpuscular Hgb Conc. 32.1 g/dL (32.0-36.0); Mean Corpuscular Volume 92.8 fL (80.0-100.0); Monocytes # (auto) 0.4 10 ^3/uL (0-1.3); Monocytes % (auto) 6.1 % (0.0-12.0); Neutrophils # (auto) 4.2 10 ^3/uL (1.6-8.6); Platelet Count (auto) 287 10^3/uL (140-450); Red Cell Distribution Width 18.3 % (11.8-14.3); White Blood Cell 6.4 10^3/uL (4.4-10.8)
[2024-01-26 19:55] VITALS: PULSE 98; RESP 18; O2SAT 95
[2024-01-26 20:03] LABS: Chloride 110 mmol/L (98-107); Potassium 3.7 mmol/L (3.5-5.1); Sodium 144 mmol/L (136-145)
[2024-01-26 20:04] LABS: Anion Gap 9 (5-15); Calcium 9.6 mg/dL (8.7-10.4); Carbon Dioxide 25 mmol/L (20-31)
[2024-01-26 20:09] LABS: Blood Urea Nitrogen 8 mg/dL (9-23); Glucose 97 mg/dL (74-106)
[2024-01-26] MEDS: cefTRIAXone W LIDOCAINE 1 GM IM IM ONE (20:28)
[2024-01-26] MEDS ORDERED: VANCOMYCIN PER PHARMACY 0 MG IV SCH (21:00)
[2024-01-26] MEDS: VANCOMYCIN 1.5GM/300ML 300 ML IV ONE (22:19)
[2024-01-27] VITALS (12 sets, daily range): BP systolic 114–121; BP diastolic 68–73; PULSE 69–84; RESP 15–20; TEMP 97.5–98.2; O2SAT 92–96
[2024-01-27] MEDS ORDERED: HYDR-4798 PO (03:06)
[2024-01-27] MEDS: CARBIDOPA W LEVODOPA 25/100mg TABLET PO SCH (05:41)
[2024-01-27] MEDS ORDERED: IPRATROPIUM BROM 0.5 MG/2.5ML INH SOL NEB PRN (06:30)
[2024-01-27] MEDS ORDERED: ALBUTEROL SULF 2.5 MG/0.5ML(0.5%) NEB SOLN NEB PRN (06:30)
[2024-01-27] MEDS: ENOXAPARIN SOD 80 MG/0.8ML SYRINGE SC ONE (07:09)
[2024-01-27] MEDS: Ensure HIGH Protein Chocolate 8oz Bottle PO SCH (08:00)
[2024-01-27 09:24] LABS: Urine Bacteria None Seen /hpf (None Seen)
[2024-01-27 09:31] LABS: Urine Blood Negative /uL (Negative); Urine Clarity Clear (Clear); Urine Color Yellow (Yellow); Urine Hyaline Cast FEW /lpf (0 - 2); Urine Protein, UAD TRACE (Negative); Urine Specific Gravity 1.023 (1.001-1.035); Urine Urobilinogen Normal (Negative); Urine WBC <1 /hpf (0 - 3)
[2024-01-27] MEDS: ALPRAZolam 0.5 MG TAB PO SCH (09:54)
[2024-01-27] MEDS ORDERED: APIXABAN 5 MG TAB PO SCH (10:00)
[2024-01-27] MEDS ORDERED: PATIENTS OWN MEDICATION (Alprazolam 1 TAB) PO SCH (10:00)
[2024-01-27] MEDS: CARVEDILOL 3.125 MG TAB PO SCH (10:00)
[2024-01-27] MEDS ORDERED: PATIENTS OWN MEDICATION (Carvedilol 1 TAB) PO SCH (10:00)
[2024-01-27 10:28] LABS: Basophils # (auto) 0 10 ^3/uL (0-0.2); Basophils % (auto) 0.8 % (0.0-2.0); Eosinophils # (auto) 0.2 10 ^3/uL (0-0.8); Eosinophils % (auto) 3.4 % (0.0-7.0); Hematocrit 38.1 % (41.0-53.0); Hemoglobin 12.3 g/dL (13.5-17.5); Lymphocytes # (auto) 1.2 10 ^3/uL (0.4-5.4); Lymphocytes % (auto) 23.9 % (10.0-50.0); Mean Corpuscular Hemoglobin 29.6 pg (28.0-32.0); Mean Corpuscular Hgb Conc. 32.3 g/dL (32.0-36.0); Mean Corpuscular Volume 91.5 fL (80.0-100.0); Monocytes # (auto) 0.4 10 ^3/uL (0-1.3); Monocytes % (auto) 7.4 % (0.0-12.0); Neutrophils # (auto) 3.2 10 ^3/uL (1.6-8.6); Neutrophils % (auto) 64.5 % (37.0-80.0); Platelet Count (auto) 268 10^3/uL (140-450); Red Blood Cells 4.16 10^6/uL (4.5-5.90); White Blood Cell 4.9 10^3/uL (4.4-10.8)
[2024-01-27 11:00] LABS: Albumin 3.2 g/dL (3.2-4.8); Alkaline Phosphatase 114 U/L (46-116); Anion Gap 4 (5-15); Aspartate Aminotransferase 11 U/L (13-40); BUN/Creatinine Ratio 14.3 (10.0-20.0); Bilirubin, Total 0.3 mg/dL (0.2-1.0); Blood Urea Nitrogen 11 mg/dL (9-23); Calcium 9.1 mg/dL (8.7-10.4); Carbon Dioxide 29 mmol/L (20-31); Chloride 112 mmol/L (98-107); Glucose 96 mg/dL (74-106); Potassium 3.9 mmol/L (3.5-5.1); Sodium 145 mmol/L (136-145); Total Protein 5.7 g/dL (5.7-8.2)
[2024-01-27 11:08] LABS: Alanine Aminotransferase < 9 U/L (7-40)
[2024-01-27] MEDS: HYDROcodone-ACET 5/325MG TAB PO PRN (15:22)
[2024-01-27] MEDS ORDERED: cefTRIAXone 1GM/50ML D5W 50 ML IV SCH (20:00)
[2024-01-27] MEDS: APIXABAN 2.5 MG TAB PO SCH (21:26)
[2024-01-27] MEDS: VANCOMYCIN 750mg/150ml 150 ML IV SCH (21:39)
[2024-01-28] VITALS (11 sets, daily range): BP systolic 110–184; BP diastolic 60–105; PULSE 72–101; RESP 16–20; TEMP 97.8–98.6; O2SAT 93–100
[2024-01-28 05:34] LABS: Basophils # (auto) 0 10 ^3/uL (0-0.2); Basophils % (auto) 0.5 % (0.0-2.0); Eosinophils # (auto) 0.1 10 ^3/uL (0-0.8); Eosinophils % (auto) 2.6 % (0.0-7.0); Hematocrit 36.9 % (41.0-53.0); Hemoglobin 11.9 g/dL (13.5-17.5); Lymphocytes # (auto) 1.3 10 ^3/uL (0.4-5.4); Lymphocytes % (auto) 23.7 % (10.0-50.0); Mean Corpuscular Hemoglobin 29.7 pg (28.0-32.0); Mean Corpuscular Hgb Conc. 32.3 g/dL (32.0-36.0); Monocytes # (auto) 0.3 10 ^3/uL (0-1.3); Monocytes % (auto) 6.4 % (0.0-12.0); Neutrophils # (auto) 3.7 10 ^3/uL (1.6-8.6); Neutrophils % (auto) 66.8 % (37.0-80.0); Platelet Count (auto) 258 10^3/uL (140-450); Red Blood Cells 4.01 10^6/uL (4.5-5.90); White Blood Cell 5.5 10^3/uL (4.4-10.8)
[2024-01-28 05:57] LABS: Anion Gap 5 (5-15); Carbon Dioxide 27 mmol/L (20-31); Chloride 110 mmol/L (98-107); Sodium 142 mmol/L (136-145)
[2024-01-28 06:03] LABS: BUN/Creatinine Ratio 17.2 (10.0-20.0); Blood Urea Nitrogen 15 mg/dL (9-23); Glucose 87 mg/dL (74-106)
[2024-01-28] MEDS ORDERED: ENOXAPARIN SOD 40 MG/0.4 ML SYRINGE SC SCH (10:00)
[2024-01-29] VITALS (8 sets, daily range): BP systolic 100–110; BP diastolic 60–65; PULSE 68–83; RESP 18–20; TEMP 97.2–98.1; O2SAT 92–98
[2024-01-29 10:32] LABS: Basophils # (auto) 0 10 ^3/uL (0-0.2); Basophils % (auto) 0.5 % (0.0-2.0); Eosinophils # (auto) 0.2 10 ^3/uL (0-0.8); Eosinophils % (auto) 2.8 % (0.0-7.0); Hematocrit 39.3 % (41.0-53.0); Hemoglobin 12.8 g/dL (13.5-17.5); Lymphocytes % (auto) 35.1 % (10.0-50.0); Mean Corpuscular Hemoglobin 30.2 pg (28.0-32.0); Mean Corpuscular Hgb Conc. 32.4 g/dL (32.0-36.0); Mean Corpuscular Volume 93.2 fL (80.0-100.0); Monocytes # (auto) 0.3 10 ^3/uL (0-1.3); Monocytes % (auto) 5.3 % (0.0-12.0); Neutrophils # (auto) 3.2 10 ^3/uL (1.6-8.6); Neutrophils % (auto) 56.3 % (37.0-80.0); Nucleated Red Blood Cells % 0.1 %; Platelet Count (auto) 294 10^3/uL (140-450); Red Blood Cells 4.22 10^6/uL (4.5-5.90); Red Cell Distribution Width 18.7 % (11.8-14.3); White Blood Cell 5.6 10^3/uL (4.4-10.8)
[2024-01-29 10:41] LABS: Chloride 110 mmol/L (98-107); Potassium 3.5 mmol/L (3.5-5.1); Sodium 143 mmol/L (136-145)
[2024-01-29 10:42] LABS: Anion Gap 5 (5-15); Calcium 9.4 mg/dL (8.7-10.4); Carbon Dioxide 28 mmol/L (20-31)
[2024-01-29 10:47] LABS: BUN/Creatinine Ratio 16.2 (10.0-20.0); Blood Urea Nitrogen 16 mg/dL (9-23); Glucose 96 mg/dL (74-106)
[2024-01-29] MEDS ORDERED: DOXY-111 PO (16:15)
[2024-01-30 01:00] VITALS: BP 106/59; PULSE 72; RESP 20; TEMP 97.6; O2SAT 96
[2024-01-30 05:00] VITALS: BP 126/71; PULSE 74; RESP 18; TEMP 97.7; O2SAT 94
[2024-01-30 07:22] LABS: Basophils # (auto) 0 10 ^3/uL (0-0.2); Basophils % (auto) 0.6 % (0.0-2.0); Eosinophils # (auto) 0.2 10 ^3/uL (0-0.8); Eosinophils % (auto) 3.4 % (0.0-7.0); Hematocrit 34.7 % (41.0-53.0); Hemoglobin 11.4 g/dL (13.5-17.5); Lymphocytes # (auto) 1.6 10 ^3/uL (0.4-5.4); Mean Corpuscular Hemoglobin 29.8 pg (28.0-32.0); Mean Corpuscular Hgb Conc. 32.9 g/dL (32.0-36.0); Mean Corpuscular Volume 90.5 fL (80.0-100.0); Monocytes # (auto) 0.3 10 ^3/uL (0-1.3); Neutrophils # (auto) 2.5 10 ^3/uL (1.6-8.6); Nucleated Red Blood Cells % 0.1 %; Platelet Count (auto) 264 10^3/uL (140-450); Red Blood Cells 3.83 10^6/uL (4.5-5.90); Red Cell Distribution Width 17.8 % (11.8-14.3); White Blood Cell 4.6 10^3/uL (4.4-10.8)
[2024-01-30 09:10] VITALS: O2SAT 100
[2024-01-30] MEDS ORDERED: AUG875T PO (11:43)
[2024-01-30 12:00] VITALS: BP 131/68; PULSE 74; RESP 18; TEMP 97.8; O2SAT 97
[2024-01-30 14:08] VITALS: BP 109/64; PULSE 86; TEMP 36.5
== END 2024-01-30 16:15 | disposition hospice, home (50) | DRG 593 ==
LOC: ER 19:07 → OVERFLOW 23:58 → WEST WING 01-27 02:37
PROVIDERS: ADMIT Internal Medicine; ATTEND Internal Medicine
DX: L89.153 Pressure ulcer of sacral region, stage 3 (principal); E44.1 Mild protein-calorie malnutrition; G20.A1 Parkinson's disease without dyskinesia, without mention of fluctuations; I48.91 Unspecified atrial fibrillation; F17.210 Nicotine dependence, cigarettes, uncomplicated; J44.9 Chronic obstructive pulmonary disease, unspecified; Z68.22 Body mass index [BMI] 22.0-22.9, adult; Z88.2 Allergy status to sulfonamides; Z91.018 Allergy to other foods; Z91.09 Other allergy status, other than to drugs and biological substances; Z80.3 Family history of malignant neoplasm of breast; Z86.711 Personal history of pulmonary embolism; Z79.2 Long term (current) use of antibiotics; Z79.899 Other long term (current) drug therapy
CPT/HCPCS: 36415; 71045; 72170; 80048; 80053; 80202; 81001; 82565; 83605; 85025; 87077; 87186; 87205; 93970; 97163; G0378; J0696

== ENCOUNTER 2025-02-22 03:52 | Inpatient (IN) | payer OTHER, MEDICARE ==
[~2025-02-22] VITALS: Ht 172.7 cm; Wt 74.6 kg
[~2025-02-22 03:52] MED LIST changes: +AUG875T PO; -CIPR-173 PO; +HYDR-4798 PO
--- NOTE | 2025-02-22 05:15 | ED.PDOC ---
Back pain HPI HPI Comments Pt BIBA with cc of left hip pain s/p fall that occurred Tuesday night. Pt states he lost balance and fell, landing on his left side. Pt denies hitting his head. States it has been difficult for him to walk since that time. Pt has been taking norco 10/325 at home without relief of the pain. Chief Complaint: Lower Extremity Time Seen by MD: 04:40 Primary Care Provider: UNKNOWN NAME Reviewed Notes: Nurses Notes, Medications, Allergies Allergies: Coded Allergies: Avocado (Verified Allergy, Unknown, 12/11/22) [place] Extract (Verified Allergy, Unknown, 12/11/22) Sulfa Antibiotics (Verified Allergy, Unknown, 12/10/22) Home Meds Active Scripts Amoxicillin & Pot Clavulanate (AUGMENTIN TABLET) 875 Mg Tb, 875 MG PO BID for 7 Days, #14 TAB Prov:JENAE NOLASCO RESIDENT 01/30/24 Apixaban Base (ELIQUIS) 5 Mg Tab, 2.5 MG PO BID for 90 Days, #90 TAB Prov:CHARLA HERRERA CRADLE SLIDE MAKER 12/14/22 Reported Medications Hydrocodone-Acetaminophen (Hydrocodone Bitartrate/AC 10-325 mg) 1 Tab Tab, 1 TAB PO PRN for PAIN SCALE 7 THRU 10, TAB 01/27/24 Duloxetine Hcl (Cymbalta) 30 Mg Cap, 1 CAP PO BID 11/14/23 Carvedilol (Carvedilol) 6.25 Mg Tab, 1 TAB PO BID 11/14/23 Furosemide (Furosemide) 40 Mg Tab, 1 TAB PO DAILY 11/14/23 Alprazolam (Alprazolam) 1 Mg Tab, 1 TAB PO BID for ANXIETY, #60 TAB 12/10/22 Levodopa W/Carbidopa (Sinemet) 25 /100 Tab, 2 TAB PO TID 12/10/22 Pantoprazole Sodium Sesquihydr (Protonix) 40 Mg Tab, 40 MG PO DAILY, #30 TAB 12/10/22 Information Source: Patient Mode of Arrival: EMS Past Medical History PAST MEDICAL HISTORY: AFIB, COPD Surgical History: Denies all surgeries Family History Family History: Reviewed,noncontributory to illness Social History Smoker: Quit Less Than 1 Year Alcohol: Denies ETOH Use Drugs: Denies Drug Use Lives In: Home All Other Systems: Reviewed and Negative (see hpi) Physical Exam General Appearance: No Apparent Distress, Normal HEENT: Pharynx Normal Neck: Full Range of Motion, Non-Tender Respiratory: Lungs Clear, No Respiratory Distress, Normal Breath Sounds Cardiovascular: No Edema, No JVD, No Murmur, No Gallop, Normal Peripheral Pulses, Regular Rate/Rhythm Breast Exam: Deferred Gastrointestinal: No Organomegaly, Non Tender, No Pulsatile Mass, Normal Bowel Sounds, Soft Genitalia: Deferred Pelvic: Deferred Rectal: Deferred Extremities: Normal capillary refill, Normal inspection, Normal range of motion, Non-tender, No pedal edema Musculoskeletal : Location: Left Extremity Location: Hip (Moderate tenderness to groin on palpation full range of motion with discomfort positive pedal pulse no shortening of extremity or internal rotation) Apperance: Normal Neurologic: Alert, No Motor Deficits, Normal Affect, Normal Mood, No Sensory Deficits Cerebellar Function: Normal Reflexes: NOT DONE Skin: Dry, Normal Color, Warm, Wounds (Multiple skin tears and ecchymosis noted on bilateral arms) Lymphatic: No Adenopathy Was a procedure done? Was a procedure done?: No Back Pain Differential Dx Differential Diagnosis: Fracture, Musculoskeletal Pain X-Ray, Labs, Meds, VS Vital Signs Date Time Temp Pulse Resp B/P (MAP) Pulse Ox O2 Delivery O2 Flow Rate FiO2 02/22/25 03:55 98.2 101 18 115/70 94 98.2 Lab Test 02/22/25 06:10 Range/Units White Blood Count 6.2 4.4-10.8 10^3/uL Red Blood Count 3.90 L 4.5-5.90 10^6/uL Hemoglobin 13.3 L 13.5-17.5 g/dL Hematocrit 39.8 L 41.0-53.0 % Mean Corpuscular Volume 101.9 H 80.0-100.0 fL Mean Corpuscular Hemoglobin 34.0 H 28.0-32.0 pg Mean Corpuscular Hemoglobin Concent 33.4 32.0-36.0 g/dL Red Cell Distribution Width 14.8 H 11.8-14.3 % Platelet Count 119 L 140-450 10^3/uL Mean Platelet Volume 7.3 6.9-10.8 fL Neutrophils (%) (Auto) 80.2 H 37.0-80.0 % Lymphocytes (%) (Auto) 13.4 10.0-50.0 % Monocytes (%) (Auto) 6.1 0.0-12.0 % Eosinophils (%) (Auto) 0.2 0.0-7.0 % Basophils (%) (Auto) 0.1 0.0-2.0 % Neutrophils # (Auto) 5.0 1.6-8.6 10 ^3/uL Lymphocytes # (Auto) 0.8 0.4-5.4 10 ^3/uL Monocytes # (Auto) 0.4 0-1.3 10 ^3/uL Eosinophils # (Auto) 0 0-0.8 10 ^3/uL Basophils # (Auto) 0 0-0.2 10 ^3/uL Nucleated Red Blood Cells 0.1 % Sodium Level 145 136-145 mmol/L Potassium Level 4.8 3.5-5.1 mmol/L Chloride Level 108 H 98-107 mmol/L Carbon Dioxide Level 26 20-31 mmol/L Anion Gap 11 5-15 Blood Urea Nitrogen 28 H 9-23 mg/dL Creatinine 1.14 0.700-1.30 mg/dL Glomerular Filtration Rate Calc 65 >90 mL/min BUN/Creatinine Ratio 24.6 H 10.0-20.0 Serum Glucose 95 74-106 mg/dL Calcium Level 8.5 L 8.7-10.4 mg/dL Total Bilirubin 0.6 0.2-1.0 mg/dL Aspartate Amino Transferase (AST) 16 13-40 U/L Alanine Aminotransferase (ALT) < 9 7-40 U/L Alkaline Phosphatase 85 46-116 U/L Total Protein 5.6 L 5.7-8.2 g/dL Albumin 3.4 3.2-4.8 g/dL Current Medications Medications (Trade) Dose Ordered Sig/Toro Route Start Time Stop Time Status Last Admin Dexamethasone Sodium Phosphate (Decadron Injection) 10 mg ONCE ONCE IM 02/22/25 05:45 02/22/25 05:46 DC 02/22/25 05:54 X-Ray, Labs, Meds, VS Comment FINDINGS: No fracture or dislocation is identified. Mild degenerative changes are seen joint. Visualized portions of the pelvic bones appear to be intact. Visualized soft tissue structures appear grossly unremarkable. The bladder appears distended. IMPRESSION: 1. No fracture or dislocation. Patient reports frequent falls at home currently lives with his states he uses a walker which has not been helping. Patient with a multiple skin tears and bruising. Left hip pain constant CT shows no fracture or dislocation. Place patient for admission for intractable pain frequent falls and unsteady gait. Time of 1ST Reevaluation: 04:40 Reevaluation 1ST: Unchanged Time of 2ND Reevaluation: 05:35 Reevaluation 2ND: Unchanged Patient Education/Counseling: Diagnosis, Treatment, Need For Follow Up Family Education/Counseling: No Family Present SEPSIS Sepsis Screen Date sepsis recognized/suspect: Feb 22, 2025 Time Sepsis recognized/suspect: 354 Recent Procedure: No On Antibiotic Therapy: No Respiratory Rate >20: No Heart Rate >90: Yes Temp<36 C (96.8 F) or >38.3 C: No SBP <90 or MAP <65 mmHG: No New Acute Mental Status Change: No Is the patient on CPAP, BIPAP,: No Physician Orders Ct L Hip With Out Contrast (02/22/25 04:34) Duloxetine Hcl Capsule (Cymbalta Capsule (02/22/25 10:00) Carbidopa W Levodopa 25/100mg (Sinemet 2 (02/22/25 14:00) Pantoprazole Tablet (Protonix Tablet) (02/22/25 10:00) Alprazolam Tablet (Xanax Tablet) (02/22/25 10:00) Carvedilol Tablet (Coreg Tablet) (02/22/25 10:00) Apixaban (Eliquis) (02/22/25 10:00) Vital Signs Date Time Temp Pulse Resp B/P (MAP) Pulse Ox O2 Delivery O2 Flow Rate FiO2 02/22/25 03:55 98.2 101 18 115/70 94 98.2 Laboratory Tests Test 02/22/25 06:10 White Blood Count 6.2 10^3/uL (4.4-10.8) Departure 1 Departure Time of Disposition: 05:34 Impression: Primary Impression: Hip pain, left Additional Impressions: Frequent falls Unsteady gait Intractable pain Parkinsons Qualified Codes: G20.A1 - Parkinson's disease without dyskinesia, without mention of fluctuations Disposition: ADMITTED INPATIENT Condition: Stable Discharged With: Self Critical Care Note Critical Care Time?: No Stability Stability form required: AUGUSTINA Patino Feb 22, 2025 05:15
--- NOTE | 2025-02-22 05:29 | DVH ---
MEDICAL RECORDS NUMBER: [id number] PROCEDURE: CT CT L HIP WITH OUT CONTRAST RADIATION DOSE INFORMATION: Automated exposure control dose reduction techniques were used. DATE: 02/22/2025 04:55 AM HISTORY: left hip pain COMPARISON: None RADIATION DOSE INFORMATION: Automated exposure control dose reduction techniques were used. FINDINGS: No fracture or dislocation is identified. Mild degenerative changes are seen joint. Visualized portions of the pelvic bones appear to be intact. Visualized soft tissue structures appear grossly unremarkable. The bladder appears distended. IMPRESSION: 1. No fracture or dislocation.
[2025-02-22 06:37] LABS: Hematocrit 39.8 % (41.0-53.0); Hemoglobin 13.3 g/dL (13.5-17.5); Nucleated Red Blood Cells % 0.1 %
[2025-02-22 06:40] LABS: Mean Corpuscular Hemoglobin 34.0 pg (28.0-32.0); Mean Corpuscular Volume 101.9 fL (80.0-100.0)
--- NOTE | 2025-02-22 06:59 | DVHHP2 ---
History of Present Illness Reason for Visit: Left hip pain History of Present Illness Larry Reilly is an 79-year-old male with past medical history of L5-S1 fusion, C5-C7 fusion, cholecystectomy, hernia repair, right knee surgery, AFib and COPD who presents to the ED with left hip pain status post fall that occurred on Tuesday. Patient reports that he was opening a box of crackers in his kitchen while standing when he lost his balance and fell on his kitchen counter table and chair and landed on his left side. Patient reports that he does not take his Eliquis for the last year due to it causing low blood pressure he states. Patient denies striking his head or losing consciousness. Patient denies any recent travels, recent sick contacts, recent ingestion of spoiled food, chest pain, shortness of breath, fever, chills, lightheadedness, weakness, dizziness, abdominal pain, nausea, vomiting, diarrhea, or urinary symptoms. Cardiovascular: AFIB Pulmonary: COPD Past Surgical History: Cholecystectomy, Hernia Repair, Other (L5-S1 fusion, C5- C7 fusion, and right knee surgery) Smoke: Quit ALCOHOL: none Drugs: None Lives: with Family Domestic Violence: Neg Review of Systems Musculoskeletal: other (Left hip pain) Allergies: Coded Allergies: Avocado (Verified Allergy, Unknown, 12/11/22) [place] Extract (Verified Allergy, Unknown, 12/11/22) Sulfa Antibiotics (Verified Allergy, Unknown, 12/10/22) Exam Vital Signs Vital Signs Date Time Temp Pulse Resp B/P (MAP) Pulse Ox O2 Delivery O2 Flow Rate FiO2 02/22/25 03:55 98.2 101 18 115/70 94 98.2 General Appearance: Alert, Oriented X3, Cooperative, No acute distress HEENT: Atraumatic, PERRLA, EOMI, Mucous membr. moist/pink Respiratory: Normal air movement Cardiovascular: Normal S1, Normal S2 Abdominal: Soft Extremities: Other (Scattered bruising) Neuro: Normal speech, Normal tone, Sensation intact Psych/Mental Status: Mental status NL, Mood NL Labs/Xrays Labs Test 02/22/25 06:10 Range/Units MEDICAL RECORDS NUMBER: [id number] PROCEDURE: CT CT L HIP WITH OUT CONTRAST RADIATION DOSE INFORMATION: Automated exposure control dose reduction techniques were used. DATE: 02/22/2025 04:55 AM HISTORY: left hip pain COMPARISON: None RADIATION DOSE INFORMATION: Automated exposure control dose reduction techniques were used. FINDINGS: No fracture or dislocation is identified. Mild degenerative changes are seen joint. Visualized portions of the pelvic bones appear to be intact. Visualized soft tissue structures appear grossly unremarkable. The bladder appears distended. IMPRESSION: 1. No fracture or dislocation. US DVT Bilateral lower extremities Comparison: US BILAT LOWER DVT on DOS: 01/27/24 Technique: Color and duplex doppler imaging of the bilateral lower extremity veins was performed. Vessel compression if possible was also performed. Findings: Right Lower Extremity: Right common femoral vein: Thrombus seen within the common femoral vein with partial flow. Right femoral vein: Normal compressibility and flow. Right popliteal vein: Normal compressibility and flow. Proximal calf veins are normally compressible. Left Lower Extremity: Left common femoral vein: Thrombus seen within the common femoral vein with partial flow. Left femoral vein: Normal compressibility and flow. Left popliteal vein: Normal compressibility and flow. Proximal calf veins are normally compressible. Anechoic structure in the left popliteal fossa likely cedillo's cyst measuring 2.9 cm. IMPRESSION: DVT in the bilateral common femoral veins. SEPSIS Sepsis Screen Date sepsis recognized/suspect: Feb 22, 2025 Time Sepsis recognized/suspect: 354 Recent Procedure: No On Antibiotic Therapy: No Respiratory Rate >20: No Heart Rate >90: Yes Temp<36 C (96.8 F) or >38.3 C: No SBP <90 or MAP <65 mmHG: No New Acute Mental Status Change: No Is the patient on CPAP, BIPAP,: No Physician Orders Ct L Hip With Out Contrast (02/22/25 04:34) Complete Blood Count (02/22/25 05:51) Comprehensive Metabolic Panel (02/22/25 05:51) Urinalysis (02/22/25 05:51) Vital Signs Date Time Temp Pulse Resp B/P (MAP) Pulse Ox O2 Delivery O2 Flow Rate FiO2 02/22/25 03:55 98.2 101 18 115/70 94 98.2 Laboratory Tests Test 02/22/25 06:10 White Blood Count Pending Medications Medications Dose Ordered Sig/Toro Route Start Time Stop Time Status Last Admin Dose Admin Dexamethasone Sodium Phosphate 10 mg ONCE ONCE IM 02/22/25 05:45 02/22/25 05:46 DC 02/22/25 05:54 10 MG Assessment/Plan Assessment/Plan Assessment Intractable left hip pain s/p fall DVT in the bilateral common femoral veins. History of afib on eliquis History of COPD History of L5-S1 fusion History of C5-C7 fusion History of cholecystectomy History of hernia repair History of right knee surgery History of tobacco use Plan Admit to [place] Antiemetics Pain management UA Dexamethasone given ED CT left hip noted Right hip x-ray Bilateral lower extremity venous ultrasound noted Diet Home medications reconciled- Eliquis PUD prophylaxis-not indicated no history of GERD or GI bleed Discussed plan of care with patient and nurse Patient refusing PIV change medications to p.o. Educated importance of having IV and patient is still refusing Counseled patient on continuance of cessation of tobacco use [id number] Behavior change smoking greater than 10 minutes about use of other options also gave option of nicotine patch [id number] Preventive counseling healthy eating habits, physical activity, and regular checkups Chads Vasc 3 points Plan discussed with: Patient Date of Service: Feb 22, 2025 Billing Provider: EMIYL ROCKWELL Common Visit Codes: [id number] INP/OBS CARE (HIGH) Secondary Visit Codes: [id number] COUNSELING IND, [id number]-[id number] CHNG SMOKING >10MIN EMILY ROCKWELL Feb 22, 2025 06:59
[2025-02-22] MEDS ORDERED: ONDANSETRON HCL 4 MG/2 ML VIAL IV PRN (07:00)
[2025-02-22 07:04] LABS: Albumin 3.4 g/dL (3.2-4.8); Alkaline Phosphatase 85 U/L (46-116); Anion Gap 11 (5-15); BUN/Creatinine Ratio 24.6 (10.0-20.0); Bilirubin, Total 0.6 mg/dL (0.2-1.0); Carbon Dioxide 26 mmol/L (20-31); Glucose 95 mg/dL (74-106); Potassium 4.8 mmol/L (3.5-5.1)
[2025-02-22 07:07] LABS: Alanine Aminotransferase < 9 U/L (7-40); Blood Urea Nitrogen 28 mg/dL (9-23); Calcium 8.5 mg/dL (8.7-10.4); Chloride 108 mmol/L (98-107); Sodium 145 mmol/L (136-145); Total Protein 5.6 g/dL (5.7-8.2)
[2025-02-22 07:25] VITALS: PULSE 99; RESP 14; O2SAT 93
--- NOTE | 2025-02-22 09:17 | DVH ---
US DVT Bilateral lower extremities Comparison: US BILAT LOWER DVT on DOS: 01/27/24 Technique: Color and duplex doppler imaging of the bilateral lower extremity veins was performed. Vessel compression if possible was also performed. Findings: Right Lower Extremity: Right common femoral vein: Thrombus seen within the common femoral vein with partial flow. Right femoral vein: Normal compressibility and flow. Right popliteal vein: Normal compressibility and flow. Proximal calf veins are normally compressible. Left Lower Extremity: Left common femoral vein: Thrombus seen within the common femoral vein with partial flow. Left femoral vein: Normal compressibility and flow. Left popliteal vein: Normal compressibility and flow. Proximal calf veins are normally compressible. Anechoic structure in the left popliteal fossa likely cedillo's cyst measuring 2.9 cm. IMPRESSION: DVT in the bilateral common femoral veins. Nurse practitioner Judith was notified of the above findings by the US technologist at 8:57AM.
[2025-02-22 09:45] VITALS: PULSE 115; RESP 17; O2SAT 94
[2025-02-22] MEDS ORDERED: FUROSEMIDE 40 MG/4 ML VIAL IV SCH (10:00)
[2025-02-22] MEDS: ALPRAZolam 0.5 MG TAB PO SCH (11:19)
[2025-02-22] MEDS: CARVEDILOL 3.125 MG TAB PO SCH (11:22)
[2025-02-22] MEDS: PANTOPRAZOLE 40 MG TAB PO SCH (11:22)
[2025-02-22] MEDS: APIXABAN 2.5 MG TAB PO SCH (11:22)
[2025-02-22] MEDS: HYDROcodone-ACET 5/325MG TAB PO PRN (11:27)
[2025-02-22 12:37] LABS: Urine Budding Yeast MANY /hpf (None Seen); Urine Protein, UAD TRACE (Negative); Urine WBC Clumps PRESENT /hpf (None Seen)
[2025-02-22] MEDS: CARBIDOPA W LEVODOPA 25/100mg TABLET PO SCH (14:11)
[2025-02-22] MEDS: ACETAMINOPHEN 325 MG TAB PO PRN (14:49)
[2025-02-22 16:30] VITALS: BP 157/100; PULSE 81; RESP 21; TEMP 97.6; O2SAT 94
[2025-02-22 17:17] VITALS: BP 157/100; PULSE 90; PULSE 93; RESP 16; TEMP 97.9; O2SAT 93
--- NOTE | 2025-02-22 18:09 | ECG ---
[facility] Test Date: 2025-02-22 Test Time: 15:07:18 Pat Name: AWILDA HUERTA Department: ED Room: [facility] Gender: M Graphic Arts Instructor: belkis : 1945 Requested By: EMILY ROCKWELL Order Number: [id number] Reading MD: Yung Lozano Measurements Intervals [place] Rate: 129 P: 191 IN: 154 QRS: 52 QRSD: 65 T: 58 QT: 321 QTc: 471 Interpretive Statements Sinus or ectopic atrial tachycardia Left atrial enlargement Low voltage, precordial leads Electronically Signed On 02-26-2025 17:43:49 PST by Yung Lozano Please click the below link to view image of tracing.
[2025-02-22 20:00] VITALS: RESP 16
[2025-02-22 21:00] VITALS: BP 162/98; PULSE 121; RESP 18; TEMP 97.8; O2SAT 94
[2025-02-23] VITALS (8 sets, daily range): BP systolic 133–176; BP diastolic 75–96; PULSE 59–81; RESP 16–20; TEMP 97.7–98.6; O2SAT 90–95
[2025-02-23 07:20] LABS: Hematocrit 38.6 % (41.0-53.0); Hemoglobin 13.1 g/dL (13.5-17.5); Mean Corpuscular Hemoglobin 34.6 pg (28.0-32.0); Mean Corpuscular Volume 102.2 fL (80.0-100.0); Nucleated Red Blood Cells % 0.2 %
[2025-02-23 07:36] LABS: Alkaline Phosphatase 82 U/L (46-116); Anion Gap 11 (5-15); BUN/Creatinine Ratio 20.8 (10.0-20.0); Blood Urea Nitrogen 20 mg/dL (9-23); Carbon Dioxide 26 mmol/L (20-31); Chloride 103 mmol/L (98-107); Glucose 100 mg/dL (74-106); Potassium 4.0 mmol/L (3.5-5.1); Sodium 140 mmol/L (136-145)
[2025-02-23 07:37] LABS: Alanine Aminotransferase < 9 U/L (7-40); Albumin 3.2 g/dL (3.2-4.8); Bilirubin, Total 1.0 mg/dL (0.2-1.0); Calcium 8.6 mg/dL (8.7-10.4); Total Protein 5.4 g/dL (5.7-8.2)
[2025-02-23] MEDS: FUROSEMIDE 40 MG TAB PO SCH (09:31)
--- NOTE | 2025-02-23 13:52 | DVHPN2 ---
Reviewed: Care Plan, H&P, Labs, Medications, Previous Orders, Radiology Changes from previous H/P or p: No Changes Musculoskeletal: other (Left hip pain) Objective Vitals Vital Signs Date Time Temp Pulse Resp B/P (MAP) Pulse Ox O2 Delivery O2 Flow Rate FiO2 02/23/25 09:31 159/83 02/23/25 09:30 68 02/23/25 09:00 98.6 19 92 98.6 02/23/25 08:00 Room Air* 0 21 Intake/Output Intake and Output 02/23/25 07:00 Intake Total 480 ml Output Total 900 ml Balance -420 ml Intake Oral 480 ml Output Urine Total 900 ml Medications Current Medications Medications Dose Ordered Sig/Toro Route Start Time Stop Time Status Last Admin Dose Admin Apixaban 2.5 mg BID PO 02/22/25 10:00 02/23/25 09:30 2.5 MG Duloxetine HCl 30 mg BID PO 02/22/25 10:00 02/23/25 09:31 30 MG Carbidopa/Levodopa 2 tab TID PO 02/22/25 14:00 02/23/25 06:15 2 TAB Pantoprazole Sodium 40 mg DAILY PO 02/22/25 10:00 02/23/25 09:31 40 MG Alprazolam 1 mg BID PO 02/22/25 10:00 02/23/25 09:31 1 MG Carvedilol 6.25 mg BID PO 02/22/25 10:00 02/23/25 09:30 6.25 MG Acetaminophen/ Hydrocodone Bitart 1 tab Q4HP PRN PO 02/22/25 07:00 02/22/25 20:37 1 TAB Ondansetron HCl 4 mg Q4HP PRN IV 02/22/25 07:00 Acetaminophen 650 mg Q6HP PRN PO 02/22/25 07:00 02/22/25 14:49 650 MG Furosemide 40 mg DAILY PO 02/23/25 10:00 02/23/25 09:31 40 MG Laboratory Results Laboratory Tests 02/23/25 05:50 Chemistry Test 02/23/25 05:50 Albumin 3.2 g/dL (3.2-4.8) Calcium Level 8.6 mg/dL (8.7-10.4) L Total Protein 5.4 g/dL (5.7-8.2) L LFT Test 02/23/25 05:50 Alanine Aminotransferase (ALT) < 9 U/L (7-40) Alkaline Phosphatase 82 U/L (46-116) Aspartate Amino Transferase (AST) 15 U/L (13-40) Total Bilirubin 1.0 mg/dL (0.2-1.0) Urinalysis Test 02/22/25 12:16 Urine Color Colorless (Yellow) Urine Clarity Ex.turbid (Clear) Urine pH 6.0 (5.0-9.0) Urine Specific [place] 1.007 (1.001-1.035) Urine Protein Trace (Negative) H Urine Ketones Negative (Negative) Urine Blood 1+ /uL (Negative) H Urine Nitrite 1+ (Negative) H Urine Bilirubin Negative (Negative) Urine Urobilinogen Normal mg/dL (Negative) Urine Leukocyte Esterase 3+ /uL (Negative) Urine RBC 14 /hpf (0 - 3) Urine WBC Clumps Present /hpf (None Seen) Urine Microscopic WBC 405 /HPF (0-3) H Urine Squamous Epithelial Cells Few /hpf (<5) Urine Bacteria None seen /hpf (None Seen) Urine Mucus Few (None Seen) Urine Yeast (Budding) Many /hpf (None Seen) Urine Glucose Normal mg/dL (Normal) Microbiology Microbiology Date/Time Source Procedure Growth Status 02/22/25 16:15 Nose MRSA Screen - Final Methicillin Resistant S.aureus Complete Labs and/or images reviewed: Labs reviewed by me, Image(s) reviewed by me Assessment/Plan Assessment/Plan Acute intractable left hip pain no fracture: Pain medications Mechanical fall Bilateral lower extremity DVT Eliquis History of AFib on Eliquis 2.5 mg p.o. b.i.d. Acute COPD exacerbation Sepsis secondary to urinary tract infection: Blood cultures urine cultures Rocephin History of L5-S1 fusion History of C5-7 fusion Chronic current smoking: Counseling Time spent 65 minutes Advanced care planning time 20 minutes Patient is full code Patient is hospice revoked Patient is DNR Patient on [facility] Plan discussed with: Patient My Orders Orders - KADE COSTA MD Procedure Category Date Status Time Blood Culture HARVEY 02/23/25 Transmitted 13:42 Urine Bacterial HARVEY 02/23/25 Transmitted Culture 13:42 Ceftriaxone Ivpb PHA 02/24/25 Transmitted Rocephin 09:00 Ceftriaxone Ivpb PHA 11/15/25 Transmitted Rocephin 13:45 Date of Service: Feb 23, 2025 Billing Provider: KADE COSTA MD Common Visit Codes: [id number] CARE 30-74 MIN KADE COSTA MD Feb 23, 2025 13:52
[2025-02-24] VITALS (8 sets, daily range): BP systolic 106–141; BP diastolic 60–84; PULSE 65–84; RESP 16–20; TEMP 97.5–97.9; O2SAT 93–96
--- NOTE | 2025-02-24 11:16 | DVHPN2 ---
Reviewed: Care Plan, H&P, Labs, Medications, Previous Orders, Radiology Changes from previous H/P or p: No Changes Musculoskeletal: other (Left hip pain) Objective Vitals Vital Signs Date Time Temp Pulse Resp B/P (MAP) Pulse Ox O2 Delivery O2 Flow Rate FiO2 02/24/25 09:47 84 114/60 02/24/25 08:47 97.7 18 94 97.7 02/24/25 08:03 Room Air* 0 21 Intake/Output Intake and Output 02/24/25 07:00 Intake Total 150 ml Output Total 375 ml Balance -225 ml IV Total 50 ml Tube Feeding 100 ml Output Urine Total 375 ml # Voids 1 Medications Current Medications Medications Dose Ordered Sig/Toro Route Start Time Stop Time Status Last Admin Dose Admin Apixaban 2.5 mg BID PO 02/22/25 10:00 02/24/25 09:44 2.5 MG Duloxetine HCl 30 mg BID PO 02/22/25 10:00 02/24/25 09:44 30 MG Carbidopa/Levodopa 2 tab TID PO 02/22/25 14:00 02/24/25 05:44 2 TAB Pantoprazole Sodium 40 mg DAILY PO 02/22/25 10:00 02/24/25 09:45 40 MG Alprazolam 1 mg BID PO 02/22/25 10:00 02/24/25 09:45 1 MG Carvedilol 6.25 mg BID PO 02/22/25 10:00 02/23/25 22:02 6.25 MG Acetaminophen/ Hydrocodone Bitart 1 tab Q4HP PRN PO 02/22/25 07:00 02/24/25 05:02 1 TAB Ondansetron HCl 4 mg Q4HP PRN IV 02/22/25 07:00 Acetaminophen 650 mg Q6HP PRN PO 02/22/25 07:00 02/22/25 14:49 650 MG Furosemide 40 mg DAILY PO 02/23/25 10:00 02/24/25 09:45 40 MG Ceftriaxone Sodium 50 ml @ 100 mls/hr DAILY@09 IV 02/24/25 09:00 02/24/25 09:44 100 MLS/HR Laboratory Results Laboratory Tests 02/23/25 05:50 Urinalysis Test 02/22/25 12:16 Urine Color Colorless (Yellow) Urine Clarity Ex.turbid (Clear) Urine pH 6.0 (5.0-9.0) Urine Specific [place] 1.007 (1.001-1.035) Urine Protein Trace (Negative) H Urine Ketones Negative (Negative) Urine Blood 1+ /uL (Negative) H Urine Nitrite 1+ (Negative) H Urine Bilirubin Negative (Negative) Urine Urobilinogen Normal mg/dL (Negative) Urine Leukocyte Esterase 3+ /uL (Negative) Urine RBC 14 /hpf (0 - 3) Urine WBC Clumps Present /hpf (None Seen) Urine Microscopic WBC 405 /HPF (0-3) H Urine Squamous Epithelial Cells Few /hpf (<5) Urine Bacteria None seen /hpf (None Seen) Urine Mucus Few (None Seen) Urine Yeast (Budding) Many /hpf (None Seen) Urine Glucose Normal mg/dL (Normal) Microbiology Microbiology Date/Time Source Procedure Growth Status 02/22/25 16:15 Nose MRSA Screen - Final Methicillin Resistant S.aureus Complete Labs and/or images reviewed: Labs reviewed by me, Image(s) reviewed by me Assessment/Plan Assessment/Plan Acute intractable left hip pain no fracture: Pain medications Mechanical fall Bilateral lower extremity DVT Eliquis History of AFib on Eliquis 2.5 mg p.o. b.i.d. Acute COPD exacerbation Sepsis secondary to urinary tract infection: Blood cultures urine cultures Rocephin History of L5-S1 fusion History of C5-7 fusion Chronic current smoking: Counseling Time spent 55 minutes Advanced care planning time 20 minutes Patient is full code Patient is hospice revoked Patient is DNR Patient on [facility] [phone] at bed side Plan discussed with: Patient My Orders Orders - KADE COSTA MD Procedure Category Date Status Time Blood Culture HARVEY 02/23/25 In Process 13:42 Urine Bacterial HARVEY 02/23/25 In Process Culture 13:42 Ceftriaxone 1gm/50ml PHA 02/24/25 In Process (Rocephin) 09:00 Code Status CODE 02/23/25 Transmitted 13:52 * Dietary Consult CONS 02/23/25 Transmitted 16:38 Cleanse Wound With JOSE ROBERTO 02/23/25 In Process Wound Clean 13:35 Apply Z-Guard JOSE ROBERTO 02/23/25 In Process 13:35 Date of Service: Feb 24, 2025 Billing Provider: KADE COSTA MD Common Visit Codes: [id number] INP/OBS CARE(HIGH) KADE COSTA MD Feb 24, 2025 11:16
[2025-02-24] MEDS ORDERED: BACITRACIN TOP OINT 1 UD PKG TOP SCH (12:13)
[2025-02-24] MEDS: MUPIROCIN 2% OINT 15gm or 22gm FOR MRSA NARES EACHNOSTRI SCH (22:11)
[2025-02-25] VITALS (8 sets, daily range): BP systolic 97–122; BP diastolic 63–79; PULSE 76–83; RESP 15–18; TEMP 97.6–98; O2SAT 90–96
--- NOTE | 2025-02-25 13:42 | DVHPN2 ---
Reviewed: Care Plan, H&P, Labs, Medications, Previous Orders, Radiology Changes from previous H/P or p: No Changes Musculoskeletal: other (Left hip pain) Objective Vitals Vital Signs Date Time Temp Pulse Resp B/P (MAP) Pulse Ox O2 Delivery O2 Flow Rate FiO2 02/25/25 12:34 97.6 76 16 97/66 (76) 92 97.6 02/25/25 08:00 Room Air* 0 21 Intake/Output Intake and Output 02/25/25 07:00 Intake Total 570 ml Output Total 1175 ml Balance -605 ml Intake Oral 520 ml IV Total 50 ml Output Urine Total 1175 ml # Bowel Movements 1 Medications Current Medications Medications Dose Ordered Sig/Toro Route Start Time Stop Time Status Last Admin Dose Admin Apixaban 2.5 mg BID PO 02/22/25 10:00 02/25/25 10:23 2.5 MG Duloxetine HCl 30 mg BID PO 02/22/25 10:00 02/25/25 10:23 30 MG Carbidopa/Levodopa 2 tab TID PO 02/22/25 14:00 02/25/25 05:30 2 TAB Pantoprazole Sodium 40 mg DAILY PO 02/22/25 10:00 02/25/25 10:23 40 MG Alprazolam 1 mg BID PO 02/22/25 10:00 02/24/25 22:11 1 MG Carvedilol 6.25 mg BID PO 02/22/25 10:00 02/25/25 10:24 6.25 MG Acetaminophen/ Hydrocodone Bitart 1 tab Q4HP PRN PO 02/22/25 07:00 02/25/25 10:23 1 TAB Ondansetron HCl 4 mg Q4HP PRN IV 02/22/25 07:00 Acetaminophen 650 mg Q6HP PRN PO 02/22/25 07:00 02/24/25 16:53 650 MG Furosemide 40 mg DAILY PO 02/23/25 10:00 02/24/25 09:45 40 MG Ceftriaxone Sodium 50 ml @ 100 mls/hr DAILY@09 IV 02/24/25 09:00 02/25/25 10:23 100 MLS/HR Mupirocin 1 applic BID EACHNOSTRI 02/24/25 22:00 03/01/25 21:59 02/25/25 10:30 1 APPLIC Laboratory Results Laboratory Tests 02/23/25 05:50 Urinalysis Test 02/22/25 12:16 Urine Color Colorless (Yellow) Urine Clarity Ex.turbid (Clear) Urine pH 6.0 (5.0-9.0) Urine Specific [place] 1.007 (1.001-1.035) Urine Protein Trace (Negative) H Urine Ketones Negative (Negative) Urine Blood 1+ /uL (Negative) H Urine Nitrite 1+ (Negative) H Urine Bilirubin Negative (Negative) Urine Urobilinogen Normal mg/dL (Negative) Urine Leukocyte Esterase 3+ /uL (Negative) Urine RBC 14 /hpf (0 - 3) Urine WBC Clumps Present /hpf (None Seen) Urine Microscopic WBC 405 /HPF (0-3) H Urine Squamous Epithelial Cells Few /hpf (<5) Urine Bacteria None seen /hpf (None Seen) Urine Mucus Few (None Seen) Urine Yeast (Budding) Many /hpf (None Seen) Urine Glucose Normal mg/dL (Normal) Microbiology Microbiology Date/Time Source Procedure Growth Status 02/23/25 18:00 Voided Urine Urine Culture - Preliminary Resulted 02/23/25 14:36 Blood Blood Culture - Preliminary NO GROWTH AFTER 24 HOURS OF INCUBATION. Resulted 02/22/25 16:15 Nose MRSA Screen - Final Methicillin Resistant S.aureus Complete Labs and/or images reviewed: Labs reviewed by me, Image(s) reviewed by me Assessment/Plan Assessment/Plan Acute intractable left hip pain no fracture: Pain medications Mechanical fall Bilateral lower extremity DVT Eliquis History of AFib on Eliquis 2.5 mg p.o. b.i.d. Acute COPD exacerbation Sepsis secondary to urinary tract infection: Blood cultures neg, urine cultures negative, continue Rocephin History of L5-S1 fusion History of C5-7 fusion Chronic current smoking: Counseling Time spent 55 minutes Advanced care planning time 20 minutes Patient is full code Patient is hospice revoked Patient is DNR Patient on [facility] [phone] at bed side Plan discussed with: Patient My Orders Orders - KADE COSTA MD Procedure Category Date Status Time Mupirocin 2% Oint PHA 02/24/25 In Process Mrsa Nares (Bactroban 22:00 Date of Service: Feb 25, 2025 Billing Provider: KADE COSTA MD Common Visit Codes: [id number] INP/OBS CARE(HIGH) KADE COSTA MD Feb 25, 2025 13:42
[2025-02-26] VITALS (8 sets, daily range): BP systolic 109–132; BP diastolic 63–82; PULSE 75–82; RESP 16–18; TEMP 97.6–98.1; O2SAT 93–96
--- NOTE | 2025-02-26 12:09 | DVHPN2 ---
Reviewed: Care Plan, H&P, Labs, Medications, Previous Orders, Radiology Changes from previous H/P or p: No Changes Musculoskeletal: other (Left hip pain) Objective Vitals Vital Signs Date Time Temp Pulse Resp B/P (MAP) Pulse Ox O2 Delivery O2 Flow Rate FiO2 02/26/25 11:16 122/77 02/26/25 11:08 77 02/26/25 09:00 97.7 18 95 97.7 02/26/25 08:00 Room Air* 0 21 Intake/Output Intake and Output 02/26/25 07:00 Intake Total 950 ml Output Total 850 ml Balance 100 ml Intake Oral 850 ml IV Total 100 ml Output Urine Total 850 ml # Voids 2 # Bowel Movements 1 Medications Current Medications Medications Dose Ordered Sig/Toro Route Start Time Stop Time Status Last Admin Dose Admin Apixaban 2.5 mg BID PO 02/22/25 10:00 02/26/25 11:16 2.5 MG Duloxetine HCl 30 mg BID PO 02/22/25 10:00 02/26/25 11:16 30 MG Carbidopa/Levodopa 2 tab TID PO 02/22/25 14:00 02/26/25 05:36 2 TAB Pantoprazole Sodium 40 mg DAILY PO 02/22/25 10:00 02/26/25 11:16 40 MG Alprazolam 1 mg BID PO 02/22/25 10:00 02/25/25 23:29 1 MG Carvedilol 6.25 mg BID PO 02/22/25 10:00 02/26/25 11:08 6.25 MG Acetaminophen/ Hydrocodone Bitart 1 tab Q4HP PRN PO 02/22/25 07:00 02/26/25 11:08 1 TAB Ondansetron HCl 4 mg Q4HP PRN IV 02/22/25 07:00 Acetaminophen 650 mg Q6HP PRN PO 02/22/25 07:00 02/24/25 16:53 650 MG Furosemide 40 mg DAILY PO 02/23/25 10:00 02/26/25 11:16 40 MG Ceftriaxone Sodium 50 ml @ 100 mls/hr DAILY@09 IV 02/24/25 09:00 02/26/25 11:08 100 MLS/HR Mupirocin 1 applic BID EACHNOSTRI 02/24/25 22:00 03/01/25 21:59 02/26/25 11:16 1 APPLIC Laboratory Results Laboratory Tests 02/23/25 05:50 Urinalysis Test 02/22/25 12:16 Urine Color Colorless (Yellow) Urine Clarity Ex.turbid (Clear) Urine pH 6.0 (5.0-9.0) Urine Specific [place] 1.007 (1.001-1.035) Urine Protein Trace (Negative) H Urine Ketones Negative (Negative) Urine Blood 1+ /uL (Negative) H Urine Nitrite 1+ (Negative) H Urine Bilirubin Negative (Negative) Urine Urobilinogen Normal mg/dL (Negative) Urine Leukocyte Esterase 3+ /uL (Negative) Urine RBC 14 /hpf (0 - 3) Urine WBC Clumps Present /hpf (None Seen) Urine Microscopic WBC 405 /HPF (0-3) H Urine Squamous Epithelial Cells Few /hpf (<5) Urine Bacteria None seen /hpf (None Seen) Urine Mucus Few (None Seen) Urine Yeast (Budding) Many /hpf (None Seen) Urine Glucose Normal mg/dL (Normal) Microbiology Microbiology Date/Time Source Procedure Growth Status 02/23/25 18:00 Voided Urine Urine Culture - Final Complete 02/23/25 14:36 Blood Blood Culture - Preliminary NO GROWTH AFTER 48 HOURS OF INCUBATION. Resulted 02/22/25 16:15 Nose MRSA Screen - Final Methicillin Resistant S.aureus Complete Labs and/or images reviewed: Labs reviewed by me, Image(s) reviewed by me Assessment/Plan Assessment/Plan Acute intractable left hip pain no fracture: Pain medications Mechanical fall Bilateral lower extremity DVT Eliquis History of AFib on Eliquis 2.5 mg p.o. b.i.d. Acute COPD exacerbation Sepsis secondary to urinary tract infection: Blood cultures neg, urine cultures negative, continue Rocephin History of L5-S1 fusion History of C5-7 fusion Chronic current smoking: Counseling Time spent 55 minutes Advanced care planning time 20 minutes Patient is full code Patient is hospice revoked Patient is DNR Patient on [facility] [phone] at bed side Plan discussed with: Patient Date of Service: Feb 26, 2025 Billing Provider: KADE COSTA MD Common Visit Codes: [id number] INP/OBS CARE(HIGH) KADE COSTA MD Feb 26, 2025 12:09
[2025-02-27] VITALS (8 sets, daily range): BP systolic 110–126; BP diastolic 72–85; PULSE 73–76; RESP 16–17; TEMP 97.7–98.6; O2SAT 92–98
--- NOTE | 2025-02-27 12:19 | DVHDS2 ---
Discharge Summary Date of Admission Feb 22, 2025 at 06:47 Date of Discharge: Feb 27, 2025 Admitting Diagnosis Left hip pain Wounds: Left hip contusion Labs/Diagnostic Data: Laboratory Results Test 02/23/25 05:50 02/22/25 12:16 White Blood Count 6.1 10^3/uL (4.4-10.8) Red Blood Count 3.78 10^6/uL (4.5-5.90) Hemoglobin 13.1 g/dL (13.5-17.5) Hematocrit 38.6 % (41.0-53.0) Mean Corpuscular Volume 102.2 fL (80.0-100.0) Mean Corpuscular Hemoglobin 34.6 pg (28.0-32.0) Mean Corpuscular Hemoglobin Concent 33.8 g/dL (32.0-36.0) Red Cell Distribution Width 15.0 % (11.8-14.3) Platelet Count 113 10^3/uL (140-450) Mean Platelet Volume 7.3 fL (6.9-10.8) Neutrophils (%) (Auto) 82.3 % (37.0-80.0) Lymphocytes (%) (Auto) 11.4 % (10.0-50.0) Monocytes (%) (Auto) 6.2 % (0.0-12.0) Eosinophils (%) (Auto) 0.0 % (0.0-7.0) Basophils (%) (Auto) 0.1 % (0.0-2.0) Neutrophils # (Auto) 5.0 10 ^3/uL (1.6-8.6) Lymphocytes # (Auto) 0.7 10 ^3/uL (0.4-5.4) Monocytes # (Auto) 0.4 10 ^3/uL (0-1.3) Eosinophils # (Auto) 0 10 ^3/uL (0-0.8) Basophils # (Auto) 0 10 ^3/uL (0-0.2) Nucleated Red Blood Cells 0.2 % Sodium Level 140 mmol/L (136-145) Potassium Level 4.0 mmol/L (3.5-5.1) Chloride Level 103 mmol/L (98-107) Carbon Dioxide Level 26 mmol/L (20-31) Anion Gap 11 (5-15) Blood Urea Nitrogen 20 mg/dL (9-23) Creatinine 0.96 mg/dL (0.700-1.30) Glomerular Filtration Rate Calc 79 mL/min (>90) BUN/Creatinine Ratio 20.8 (10.0-20.0) Serum Glucose 100 mg/dL (74-106) Calcium Level 8.6 mg/dL (8.7-10.4) Total Bilirubin 1.0 mg/dL (0.2-1.0) Aspartate Amino Transferase (AST) 15 U/L (13-40) Alanine Aminotransferase (ALT) < 9 U/L (7-40) Alkaline Phosphatase 82 U/L (46-116) Total Protein 5.4 g/dL (5.7-8.2) Albumin 3.2 g/dL (3.2-4.8) Urine Color Colorless (Yellow) Urine Clarity Ex.turbid (Clear) Urine pH 6.0 (5.0-9.0) Urine Specific [place] 1.007 (1.001-1.035) Urine Protein Trace (Negative) Urine Ketones Negative (Negative) Urine Blood 1+ /uL (Negative) Urine Nitrite 1+ (Negative) Urine Bilirubin Negative (Negative) Urine Urobilinogen Normal mg/dL (Negative) Urine Leukocyte Esterase 3+ /uL (Negative) Urine RBC 14 /hpf (0 - 3) Urine WBC Clumps Present /hpf (None Seen) Urine Microscopic WBC 405 /HPF (0-3) Urine Squamous Epithelial Cells Few /hpf (<5) Urine Bacteria None seen /hpf (None Seen) Urine Mucus Few (None Seen) Urine Yeast (Budding) Many /hpf (None Seen) Urine Glucose Normal mg/dL (Normal) Other Laboratory Tests 02/23/25 05:50 Brief Hx & Hospital Course: 79-year-old male with COPD AFib on Eliquis chronic DVT bilateral lower extremities on Eliquis history of L5-S1 fusion and C5-C7 fusion on hospice burden by family after he fell at home complained of left hip pain x-ray showed no fracture treated with the pain medications. Physical therapy ordered. Chronic current smoker patient was counseled. Patient being discharged to [facility] facility for rehab and for fall prevention. The plan is acceptable to the patient and his St[place] Consults/Reason for consult none Operations or Procedures None Condition at Discharge: Fair Final Diagnosis/Problems List Acute intractable left hip pain no fracture: Pain medications Mechanical fall Bilateral lower extremity DVT Eliquis History of AFib on Eliquis 2.5 mg p.o. b.i.d. Acute COPD exacerbation Sepsis secondary to urinary tract infection: Blood cultures neg, urine cultures negative, continue Rocephin History of L5-S1 fusion History of C5-7 fusion Chronic current smoking: Counseling Discharge Disposition: Home with Health Services Discharge Instruct/Medications Diet: Cardiac 2g Na,low cholest Activity: Light activity Follow Up/Referral: Follow up with the senior living Medications: see list Scheduled Alprazolam (Alprazolam), 1 TAB PO BID, (Reported) Amoxicillin & Pot Clavulanate (Augmentin Tablet), 875 MG PO BID Apixaban Base (Eliquis), 2.5 MG PO BID Carvedilol (Carvedilol), 1 TAB PO BID, (Reported) Duloxetine Hcl (Cymbalta), 1 CAP PO BID, (Reported) Furosemide (Furosemide), 1 TAB PO DAILY, (Reported) Levodopa W/Carbidopa (Sinemet), 2 TAB PO TID, (Reported) Pantoprazole Sodium Sesquihydr (Protonix), 40 MG PO DAILY, (Reported) Scheduled PRN Hydrocodone-Acetaminophen (Hydrocodone Bitartrate/AC 10-325 mg), 1 TAB PO for PAIN SCALE 7 THRU 10, (Reported) 39 (Time taken for discharge summary 39 minutes) Discharge Statement: "Patient was advised to return to the ER or call 911 if any headaches, dizziness, shortness of breath, chest pain, abdominal pain, bleeding, fevers, or worsening of medical condition. Patient was counseled about treatment plan, medications, possible side effects, patientverbalized understanding. All questions were answered to the best of my ability. This discharge took greater then 30 minutes in planning, reviewing documentation, counseling the patient, and discussing with other team members." ASSESSMENT ASSESSMENT Hospital Course Marginal improvement Assessment Acute intractable left hip pain no fracture: Pain medications Mechanical fall Bilateral lower extremity DVT Eliquis History of AFib on Eliquis 2.5 mg p.o. b.i.d. Acute COPD exacerbation Sepsis secondary to urinary tract infection: Blood cultures neg, urine cultures negative, continue Rocephin History of L5-S1 fusion History of C5-7 fusion Chronic current smoking: Counseling Date of Service: Feb 27, 2025 Billing Provider: KADE COSTA MD Common Visit Codes: [id number] DISCH DAY >30min KADE COSTA MD Feb 27, 2025 12:19
== END 2025-02-27 20:46 | DRG 872 ==
LOC: EDBD 03:52 → ER 03:52 → OVERFLOW 06:47 → CENTRAL 15:54 → WEST WING 02-23 15:57
PROVIDERS: ADMIT Family Medicine; ATTEND Family Medicine
DX: A41.9 Sepsis, unspecified organism (principal); I82.413 Acute embolism and thrombosis of femoral vein, bilateral; Z66 Do not resuscitate; G20.A1 Parkinson's disease without dyskinesia, without mention of fluctuations; N39.0 Urinary tract infection, site not specified; Z79.01 Long term (current) use of anticoagulants; J44.1 Chronic obstructive pulmonary disease with (acute) exacerbation; F17.200 Nicotine dependence, unspecified, uncomplicated; I48.91 Unspecified atrial fibrillation; R29.6 Repeated falls; Z86.718 Personal history of other venous thrombosis and embolism; Z90.49 Acquired absence of other specified parts of digestive tract; Z98.1 Arthrodesis status; Z88.2 Allergy status to sulfonamides; Z91.02 Food additives allergy status; Z79.899 Other long term (current) drug therapy
CPT/HCPCS: 36415; 73700; 80053; 81001; 85025; 87040; 87081; 87086; 93005; 93970; 97110; 97116; 97163; 97530; G0378; J1100